=== PATIENT | female | born 1960 | race Caucasian/White ===

== ENCOUNTER → 2016-09-20 | Outpatient (CLI) | payer OTHER ==
[~2016-09-20] MED LIST: ASCO1CAP3 PO; ASPCH81X PO; ATOV250T PO; AZIT250T PO; B 12 INJECTION IM; BIOT1CAP8 PO; BIOTPOW17; CALC-51 PO; CATS CLAW PO; CEFU250T15 PO; CHLOROPHYLL PO; CHOL1CAP57 PO; CHRO200C PO; CITA-112 PO; CITA20TA4 PO; CITA40TA4 PO; CLON1TAB3 PO; CYAN1SUB13 SC; CYCL5TAB PO; CYTM5 PO; DOXY100C76 PO; FLUC100T4 PO; FLX/5 PO; GABA-113 PO; HYDR-4079 PO; HYDR-4332 PO; HYDR200T5 PO; LEVO88TA PO; LEVO88TA3 PO; LIOT5TAB9 PO; MELO7.5T5 PO; METH1CHW PO; MILK175C3 PO; MINO100C22 PO; MISCCAP80 PO; MULT-506 PO; NRN/300 PO; SILVER SHIELD PO; SULF800T23 PO; TOPI100T34 PO; TOPI50TA24 PO; TRAM-10 PO; TUMERIC PO; VIT D; VNTHFA/IN INH; [UNRECOGNIZED DRUG - OTHER] PO; [UNRECOGNIZED DRUG - OTHER] PO; [UNRECOGNIZED DRUG - OTHER] PO
[2016-09-20 16:44] LABS: THYROID STIMULATING HORMONE 0.019 uIu/ml (0.300-4.500)
== END | disposition home or self-care (01) ==
LOC: C.LAB1850 14:20
PROVIDERS: ATTEND Internal Medicine
DX: C73 Malignant neoplasm of thyroid gland (principal)

== ENCOUNTER → 2016-11-27 | Day surgery (SDC) | payer OTHER ==
[2016-11-13 11:25] VITALS: Ht 157.5 cm; Wt 45.5 kg
[~2016-11-27] VITALS: Ht 157.5 cm; Wt 45.5 kg
[~2016-11-27] MED LIST changes: -ASCO1CAP3 PO; -B 12 INJECTION IM; -BIOTPOW17; -CALC-51 PO; -CATS CLAW PO; -CHLOROPHYLL PO; -CHOL1CAP57 PO; -CHRO200C PO; -CITA-112 PO; -CYTM5 PO; +FENTANYL CITRATE INJ 50 MCG/1 ML 2 ML VIAL ONE; -FLUC100T4 PO; -FLX/5 PO; -HYDR-4332 PO; -LEVO88TA PO; +LIDOCAINE HCL 2% 2 ML VIAL (20MG/ML) ONE; -METH1CHW PO; -MILK175C3 PO; -MINO100C22 PO; -MULT-506 PO; -NRN/300 PO; +PROPOFOL IV EMULSION 10 MG/ML 20 ML VIAL IV ONE; -SILVER SHIELD PO; +SODIUM CHLORIDE 0.9% 500ML 500 ML IV ONE; -SULF800T23 PO; -TOPI50TA24 PO; -TUMERIC PO; -VIT D; -[UNRECOGNIZED DRUG - OTHER] PO; -[UNRECOGNIZED DRUG - OTHER] PO; -[UNRECOGNIZED DRUG - OTHER] PO
--- NOTE | 2016-11-27 11:02 | Endo History and Physical ---
History & Physical Date of Service: Nov 27, 2016. Chief Complaint: Screening Referring Physician: Dr. Looney History of Present Illness 56 yo CF who presents for screening colonoscopy. Past Medical History Anxiety, Reflux, Depression Past Surgical History Hx Cardiac Surgery: No Hx Internal Defibrillator: No Hx Pacemaker: No Hx Abdominal Surgery: Yes (CHEIKH BSO, LAPAROSCOPIES, D&C) Hx of Implantable Prosthesis: No Hx Post-Op Nausea and Vomiting: No Hx Cancer Surgery: Yes (THYROIDECTOMY, LYMPH NODE REMOVAL FROM NECK X3 (TOTAL 4 SX)) Hx Thoracic Surgery: No Hx Orthopedic: No Hx Urinary Tract Surgery: No Family History Polyp, IBD Social History Smoking Status: Never Smoker Hx Substance Use: No Hx Alcohol Use: Yes (rarely) Allergies Coded Allergies: Clavulanic Acid (Verified Allergy, Unknown, ITCHY, 11/13/16) Penicillins (Verified Allergy, Unknown, ITCHY; FROM AUGMENTIN, 11/13/16) Current Medications Reported Home Medications Medications Dose Route/Sig Max Daily Dose Days Date Category Dose Instructions Flexeril (Cyclobenzaprine Hcl) 5 Mg Tab 1 Tab PO TID PRN 11/17/16 Reported Ultram (Tramadol HCl) 50 Mg Tab 50 Mg PO BID PRN 11/13/16 Reported Biotin 1 Mg Cap 1 Cap PO 3XWK 11/13/16 Reported Ventolin Hfa (Albuterol) 200 Puffs/44685 Mcg Aers 2-4 Puffs INH Q6H PRN 11/13/16 Reported Probiotic (Probiotic Product) 1 Cap Cap 1 Cap PO QAM 11/13/16 Reported Topamax (Topiramate) 100 Mg Tab 100 Mg PO BID 11/13/16 Reported Mobic (Meloxicam) 7.5 Mg Tab 7.5 Mg PO QAM 11/13/16 Reported Levothyroxine Sodium 88 Mcg Tab 1 Tab PO QAM 90 11/13/16 Reported Liothyronine Sodium 5 Mcg Tab 1 Tab PO QAM 11/13/16 Reported Jackson 10MG/325MG (Acetaminophen/Hydrocodone Bitart) Tab 1 Tab PO BID PRN 11/13/16 Reported PRN PAIN Neurontin (Gabapentin) 300 Mg Cap 600 Mg PO TID 11/13/16 Reported B-12 (Cyanocobalamin) 1,000 Mcg Sub 1 Dose SC 3XWK 11/13/16 Reported Klonopin (Clonazepam) 1 Mg Tab 1 Mg PO HS 11/13/16 Reported Citalopram Hydrobromide 20 Mg Tab 1 Tab PO HS 90 11/13/16 Reported Citalopram Hydrobromide (Citalopram) 40 Mg Tab 1 Tab PO HS 90 11/13/16 Reported Aspirin Chewable (Aspirin) 81 Mg Chew 81 Mg PO QAM 11/13/16 Reported Monodox (Doxycycline Monohydrate) 100 Mg Cap 100 Mg PO BID 11/13/16 Reported Vital Signs Weight (Kilograms): 45.45 Height (Feet): 5 Height (Inches): 2 Date Time Temp Pulse Resp B/P Pulse Ox O2 Delivery O2 Flow Rate FiO2 11/27/16 10:51 36 80 20 101/81 100 Room Air Physical Exam General Appearance: WD/WN, no apparent distress Respiratory/Chest: Auscultation: breath sounds normal Cardiovascular: Heart Auscultation: RRR Abdomen: Bowel Sounds: normal Inspection & Palpation: soft, non-distended, no tenderness, guarding & rebound Assessment and Plan Assessment: 56 yo CF who presents for screening colonoscopy. Plan: Proceed with colonoscopy.
--- NOTE | 2016-11-27 11:53 | Discharge Instructions ---
Endoscopy Patient Instructions Date / Procedure(s) Performed Nov 27, 2016. Colonoscopy Allergy Information Coded Allergies: Clavulanic Acid (Verified Allergy, Unknown, ITCHY, 11/13/16) Penicillins (Verified Allergy, Unknown, ITCHY; FROM AUGMENTIN, 11/13/16) Discharge Date / Findings Nov 27, 2016. Internal and External hemorrhoids Medication Instructions 1) OK to resume all medications today as prescribed 2) Start Metamucil 1 teaspoonful in 8 oz glass of water daily. Reported Home Medications Medications Dose Route/Sig Max Daily Dose Days Date Category Dose Instructions Flexeril (Cyclobenzaprine Hcl) 5 Mg Tab 1 Tab PO TID PRN 11/17/16 Reported Ultram (Tramadol HCl) 50 Mg Tab 50 Mg PO BID PRN 11/13/16 Reported Biotin 1 Mg Cap 1 Cap PO 3XWK 11/13/16 Reported Ventolin Hfa (Albuterol) 200 Puffs/02621 Mcg Aers 2-4 Puffs INH Q6H PRN 11/13/16 Reported Probiotic (Probiotic Product) 1 Cap Cap 1 Cap PO QAM 11/13/16 Reported Topamax (Topiramate) 100 Mg Tab 100 Mg PO BID 11/13/16 Reported Mobic (Meloxicam) 7.5 Mg Tab 7.5 Mg PO QAM 11/13/16 Reported Levothyroxine Sodium 88 Mcg Tab 1 Tab PO QAM 90 11/13/16 Reported Liothyronine Sodium 5 Mcg Tab 1 Tab PO QAM 11/13/16 Reported Dougherty 10MG/325MG (Acetaminophen/Hydrocodone Bitart) Tab 1 Tab PO BID PRN 11/13/16 Reported PRN PAIN Neurontin (Gabapentin) 300 Mg Cap 600 Mg PO TID 11/13/16 Reported B-12 (Cyanocobalamin) 1,000 Mcg Sub 1 Dose SC 3XWK 11/13/16 Reported Klonopin (Clonazepam) 1 Mg Tab 1 Mg PO HS 11/13/16 Reported Citalopram Hydrobromide 20 Mg Tab 1 Tab PO HS 90 11/13/16 Reported Citalopram Hydrobromide (Citalopram) 40 Mg Tab 1 Tab PO HS 90 11/13/16 Reported Aspirin Chewable (Aspirin) 81 Mg Chew 81 Mg PO QAM 11/13/16 Reported Monodox (Doxycycline Monohydrate) 100 Mg Cap 100 Mg PO BID 11/13/16 Reported Provider Instructions Activity Restrictions - No exercising or heavy lifting for 24 hours. - Do not drink alcohol the day of the procedure. - Do not drive a car or operate machinery until the day after the procedure. - Do not make any important decisions or sign important papers in 24 hours after the procedure. Following Day: - Return to full activity which may include returning to work/school. Diet Start your diet with liquids and light foods (jello, soup, juice, toast). Then eat your usual diet if not nauseated. Treatment For Common After Affects For mild abdominal pain, bloating, or excessive gas: - Rest - Eat lightly - Lie on right side Follow-Up Information Follow-up with Dr Looney as scheduled Anesthesia Information What You Should Know You have had a procedure that required some medicine to reduce anxiety and discomfort. This treatment is called moderate sedation. After receiving the treatment, you may be sleepy, but you will be able to breathe on your own. The effects of the treatment may last for several hours. Follow these instructions along with Activity/Diet recommendations noted above: * Do NOT do anything where dizziness or clumsiness would be dangerous. * Rest quietly at home today, then you can be up and about tomorrow. * Have a responsible person stay with you the rest of today. * You may have had an I.V. today. If so, you may take the dressing off later today. Recommendations Call your doctor if: * Trouble breathing * Continuous vomiting for more than 24 hours * Temperature above 101 degrees * Severe abdominal pain or bloating * Pain not relieved by pain medicine ordered * There is increased drainage or redness from any incision * A large amount of rectal bleeding greater than 2-3 tablespoons. (If you had a polyp/s removed or have hemorrhoids, a small amount of blood - from the rectum is to be expected.) * You have any unanswered questions or concerns. IN THE EVENT OF A SERIOUS EMERGENCY, GO TO THE NEAREST EMERGENCY ROOM Your discharge instructions were prepared by provider Swapnil Anderson. Patient Instructions Signature Page Alexia Rm Patient (or Guardian) Signature/Date: I have read and understand the instructions given to me by my caregivers. Caregiver/RN/Doctor Signature/Date: The above-named patient and/or guardian has received patient instructions on this date. + Original Patient Signature Page (only) stays with chart. Please make copy for patient.
--- NOTE | 2016-11-27 11:53 | GI REPORT ---
Procedure Date: 11/27/2016 11:22 AM Procedure: Colonoscopy Indications: Screening for colorectal malignant neoplasm Medicines: Monitored Anesthesia Care Complications: No immediate complications. Estimated Blood Loss: Estimated blood loss: none. Procedure: Pre-Anesthesia Assessment: - Prior to the procedure, a History and Physical was performed, and patient medications and allergies were reviewed. The patient's tolerance of previous anesthesia was also reviewed. The risks and benefits of the procedure and the sedation options and risks were discussed with the patient. All questions were answered, and informed consent was obtained. Prior Anticoagulants: The patient has taken aspirin, last dose was 3 days prior to procedure. ASA Grade Assessment: III - A patient with severe systemic disease. After reviewing the risks and benefits, the patient was deemed in satisfactory condition to undergo the procedure. After I obtained informed consent, the scope was passed under direct vision. Throughout the procedure, the patient's blood pressure, pulse, and oxygen saturations were monitored continuously. The On-site loaner was introduced through the anus and advanced to the terminal ileum. The colonoscopy was performed without difficulty. The patient tolerated the procedure well. The quality of the bowel preparation was good. The terminal ileum, ileocecal valve, appendiceal orifice, and rectum were photographed. Findings: Non-bleeding external and internal hemorrhoids were found during retroflexion and during perianal exam. The hemorrhoids were small. The exam was otherwise without abnormality. Impression: - Non-bleeding external and internal hemorrhoids. - The examination was otherwise normal. - No specimens collected. Recommendation: - Resume previous diet. - Continue present medications. - Use original regular Metamucil one teaspoon PO daily. - Repeat colonoscopy in 10 years for surveillance. - Return to primary care physician as previously scheduled. Swapnil Anderson DO 11/27/2016 11:53:20 AM This report has been signed electronically. Note Initiated On: 11/27/2016 11:22 AM I attest to the content of the Intraoperative Record and orders documented therein, exceptions below
[2016-11-27 12:18] VITALS: BP 91/51; PULSE 72; O2SAT 99
--- NOTE | 2016-11-27 12:19 | Anesthesiology Progress Note ---
Anesthesia Post Op Note Date & Time Nov 27, 2016 at 12:19 Vital Signs Pain Intensity: 0 Vital Signs Past 12 Hours Date Time Temp Pulse Resp B/P Pulse Ox O2 Delivery O2 Flow Rate FiO2 11/27/16 12:03 74 16 93/58 100 Room Air 11/27/16 11:48 78 16 98/58 100 Room Air 11/27/16 10:51 36 80 20 101/81 100 Room Air Notes Mental Status: alert / awake / arousable, participated in evaluation Pt Amnestic to Procedure: Yes Nausea / Vomiting: adequately controlled Pain: adequately controlled Airway Patency, RR, SpO2: stable & adequate BP & HR: stable & adequate Hydration State: stable & adequate Anesthetic Complications: no major complications apparent
== END | disposition home or self-care (01) ==
LOC: C.GI 10:21
PROVIDERS: ATTEND Internal Medicine
DX: Z12.11 Encounter for screening for malignant neoplasm of colon (principal); K64.8 Other hemorrhoids; K64.4 Residual hemorrhoidal skin tags; Z83.79 Family history of other diseases of the digestive system; Z83.71 Family history of colonic polyps; Z85.850 Personal history of malignant neoplasm of thyroid

== ENCOUNTER → 2016-12-14 | Outpatient (CLI) | payer OTHER ==
[~2016-12-14] MED LIST changes: -FENTANYL CITRATE INJ 50 MCG/1 ML 2 ML VIAL ONE; -LIDOCAINE HCL 2% 2 ML VIAL (20MG/ML) ONE; -PROPOFOL IV EMULSION 10 MG/ML 20 ML VIAL IV ONE; -SODIUM CHLORIDE 0.9% 500ML 500 ML IV ONE
[2016-12-14 16:43] LABS: BLOOD UREA NITROGEN 19 mg/dl (7-18); BUN/CREATININE RATIO 25.8 (10-20); CALCIUM 8.3 mg/dl (8.5-10.1); CARBON DIOXIDE 27 mmol/L (21-32); CHLORIDE 108 mmol/L (98-107); CREATININE 0.73 mg/dl (0.60-1.20); GLUCOSE 86 mg/dl (70-99); POTASSIUM 3.6 mmol/L (3.5-5.1); SODIUM 141 mmol/L (136-145)
[2016-12-14 16:53] LABS: THYROID STIMULATING HORMONE 0.035 uIu/ml (0.300-4.500)
[2016-12-16 14:04] LABS: THYROGLOBULIN 0.2 NG/ML (2.8-40.9)
== END | disposition home or self-care (01) ==
LOC: C.LAB1850 15:11
PROVIDERS: ATTEND Internal Medicine
DX: C73 Malignant neoplasm of thyroid gland (principal); M25.50 Pain in unspecified joint

== ENCOUNTER → 2017-01-02 | Outpatient (CLI) | payer OTHER ==
--- NOTE | 2017-01-03 13:56 | MAMMOGRAPHY REPORT ---
BILATERAL DIGITAL SCREENING MAMMOGRAM TOMOSYNTHESIS WITH CAD: 01/02/2017 CLINICAL HISTORY: Routine screening. Patient has no complaints. TECHNIQUE: Breast tomosynthesis in addition to standard 2D mammography was performed. Current study was also evaluated with a Computer Aided Detection (CAD) system. COMPARISON: Comparison is made to exams dated: 12/31/2015 mammogram, 12/29/2014 mammogram, 11/06/2013 mammogram, 12/24/2012 mammogram, 10/13/2010 mammogram, and 10/12/2009 mammogram - [facility]. BREAST COMPOSITION: The tissue of both breasts is heterogeneously dense, which may obscure small ma sses. FINDINGS: The parenchymal pattern is similar to prior exams. No developing mass, architectural dis tortion or cluster of suspicious microcalcifications is seen in either breast. IMPRESSION: ACR BI-RADS CATEGORY 2: BENIGN There is no mammographic evidence of malignancy. A 1 year screening mammogram is recommended. The p atient will receive written notification of the results. Approximately 10% of breast cancers are not detected with mammography. A negative mammographic repor t should not delay biopsy if a clinically suggestive mass is present. Rhianna Zeng M.D. ay/:01/02/2017 17:41:38 Public Health Advisor: Nayely RICHARDSON(Brian)([place])([place]), [facility] letter sent: Normal 1/2 BI-RADS Code: ACR BI-RADS Category 2: Benign
== END | disposition home or self-care (01) ==
LOC: C.MAMM 11:11
PROVIDERS: ATTEND Obstetrics & Gynecology
DX: Z12.31 Encounter for screening mammogram for malignant neoplasm of breast (principal)

== ENCOUNTER → 2017-01-08 | Outpatient (CLI) | payer OTHER ==
--- NOTE | 2017-01-08 15:49 | DIAGNOSTIC IMAGING REPORT ---
MRI LUMBAR SPINE W/O CONTRAST CLINICAL HISTORY: Back pain with lumbar radiculopathy. TECHNIQUE: Sagittal and axial T1, T2 and STIR images were obtained. COMPARISON STUDY: April 2006 OBSERVATIONS: The vertebral bodies and posterior elements appear intact. There is no abnormal bony signal present to suggest a marrow replacement process. L1-2: No disc protrusions or extrusions. No evidence of spinal canal or neural foraminal compromise. L2-3: No disc protrusions or extrusions. No evidence of spinal canal or neural foraminal compromise. L3-4: No disc protrusions or extrusions. No evidence of spinal canal or neural foraminal compromise. L4-5: There is a mild circumferential disc bulge asymmetric lateral to the left. There is minor bilateral foraminal narrowing. There is slight flattening of the anterior thecal sac. L5-S1: There is a small left lateral disc bulge/protrusion. There is no significant spinal stenosis. There is minor left-sided foraminal narrowing. The conus medullaris and cauda equina appear normal. IMPRESSION: 1. Stable small left lateral disc bulge/protrusion at the L5-S1 level. No significant spinal stenosis. Minor left-sided foraminal narrowing 2. Mild circumferential disc bulge asymmetric to the left at the L4-5 level. Minor bilateral foraminal narrowing. Slight effacement of the anterior thecal sac. Electronically signed by: Cecilio Melgar M.D. 01/08/2017 3:47 PM Dictated Date/Time: 01/08/2017 3:42 PM
== END | disposition home or self-care (01) ==
LOC: C.MRIBC 14:47
PROVIDERS: ATTEND Physician Assistant Medical
DX: M54.16 Radiculopathy, lumbar region (principal); M51.27 Other intervertebral disc displacement, lumbosacral region

== ENCOUNTER → 2017-03-08 | Outpatient (CLI) | payer OTHER ==
[2017-03-08 16:03] LABS: BASO % 0.9 %; BASO ABS # 0.05 K/uL (0-0.2); COMPLETE YES; EOS % 1.1 %; HEMATOCRIT 38.4 % (37-47); IG% 1.4 %; LYMPH % 30.7 %; LYMPH ABS # 1.71 K/uL (1.2-3.4); MEAN CELL VOLUME 85.3 fL (80-100); MEAN CORPUSCULAR HEMOGLOBIN 29.1 pg (25-34); MEAN CORPUSCULAR HGB CONC 34.1 g/dl (32-36); MEAN PLATELET VOLUME 10.7 fL (7.4-10.4); MONO % 12.2 %; NEUT % 53.7 %; PLATELET COUNT 224 K/uL (130-400); WHITE BLOOD COUNT 5.57 K/uL (4.8-10.8)
[2017-03-08 16:14] LABS: ALT/SGPT 19 U/L (12-78); BLOOD UREA NITROGEN 12 mg/dl (7-18); BUN/CREATININE RATIO 12.4 (10-20); C-REACTIVE PROTEIN < 0.29 mg/dl (0-0.29); CALCIUM 8.6 mg/dl (8.5-10.1); CARBON DIOXIDE 24 mmol/L (21-32); CHLORIDE 111 mmol/L (98-107); CREATININE 0.95 mg/dl (0.60-1.20); GLUCOSE 75 mg/dl (70-99); POTASSIUM 4.1 mmol/L (3.5-5.1); SODIUM 143 mmol/L (136-145)
[2017-03-08 16:25] LABS: ALB/GLOB RATIO 1.3 (0.9-2); ALKALINE PHOSPHATASE 78 U/L (45-117); AST/SGOT 16 U/L (15-37); THYROID STIMULATING HORMONE 0.013 uIu/ml (0.300-4.500)
== END | disposition home or self-care (01) ==
LOC: C.LAB1850 14:40
PROVIDERS: ATTEND Internal Medicine
DX: R63.4 Abnormal weight loss (principal); R19.7 Diarrhea, unspecified; E53.8 Deficiency of other specified B group vitamins; C73 Malignant neoplasm of thyroid gland

== ENCOUNTER → 2017-03-19 | Outpatient (CLI) | payer OTHER ==
[~2017-03-19] MED LIST changes: +OPTIRAY 320 IV PRN
--- NOTE | 2017-03-19 14:16 | DIAGNOSTIC IMAGING REPORT ---
ABD/PELVIS IV AND ORAL CONT CLINICAL HISTORY: 56 year-old Female presenting with Weight loss Diarrhea. TECHNIQUE: Multidetector CT imaging of the abdomen and pelvis was performed after the administration of 91 mL of Optiray 320 intravenous contrast. Oral contrast was administered. COMPARISON: Noncontrast CT of the abdomen from 09/19/[address] chest from 10/26/2014. FINDINGS: Store Specialist topogram: Unremarkable. Lung bases: Nodular/bandlike opacity in the lingula, possibly scarring or atelectasis. Normal heart size. No pericardial or pleural effusion. Liver: Normal morphology. At least 4 lesions in the right hepatic lobe lesions noted, the 3 largest demonstrating peripheral discontinuous nodular enhancement at the right hepatic dome. These are enumerated below: -Segment 8 4.2 cm lesion (series 3 image 47) -Segment 7/8 2.4 cm lesion (series 3 image 33 -Adjacent segment 7 2.5 cm lesion (series 3 image 36) -Segment 6/7 subcentimeter lesion (series 3 image 70) A well-defined nonenhancing also noted in the lateral left hepatic lobe, hepatic cyst or hamartoma. Patent hepatic vasculature. No intrahepatic or extrahepatic biliary ductal dilatation. Gallbladder: Normal. Pancreas: Normal. Spleen: Normal. Adrenal glands: Normal. Kidneys: Normal. No hydronephrosis. Bowel: Oral contrast transits to the sigmoid colon. Prominence of jejunal folds, nonspecific. No bowel obstruction. Appendix not visualized. Peritoneum: No free fluid. Vasculature: Aorta and IVC patent. Lymph nodes: No enlarged lymph nodes in the abdomen or pelvis. Bladder: Normal. Pelvic organs: Patient is status post hysterectomy. No adnexal masses. Musculoskeletal: Bone island noted in the left ilium and right sacrum. IMPRESSION: 1. No convincing evidence of malignancy in the abdomen or pelvis. No lymphadenopathy. 2. Multiple hepatic lesions, incompletely characterized but likely representing benign hemangiomas. Electronically signed by: Tato Gannon 03/19/2017 2:15 PM Dictated Date/Time: 03/19/2017 1:56 PM
== END | disposition home or self-care (01) ==
LOC: C.CTS 11:12
PROVIDERS: ATTEND Internal Medicine
DX: R19.7 Diarrhea, unspecified (principal); R63.4 Abnormal weight loss

== ENCOUNTER → 2017-03-19 | Outpatient (CLI) | payer OTHER ==
[~2017-03-19] MED LIST changes: -OPTIRAY 320 IV PRN
== END | disposition home or self-care (01) ==
LOC: C.LAB1850 10:55
PROVIDERS: ATTEND Family Medicine
DX: R19.7 Diarrhea, unspecified (principal)

== ENCOUNTER → 2017-05-16 | Outpatient (CLI) | payer OTHER ==
[~2017-05-16] MED LIST changes: -DOXY100C76 PO; -MELO7.5T5 PO
[2017-05-16 13:14] LABS: HEMATOCRIT 39.1 % (37-47); MEAN CELL VOLUME 86.7 fL (80-100); MEAN CORPUSCULAR HGB CONC 33.5 g/dl (32-36); MEAN PLATELET VOLUME 10.9 fL (7.4-10.4); PLATELET COUNT 224 K/uL (130-400); RED BLOOD COUNT 4.51 M/uL (4.2-5.4); WHITE BLOOD COUNT 6.06 K/uL (4.8-10.8)
[2017-05-16 14:03] LABS: ALT/SGPT 28 U/L (12-78); AST/SGOT 18 U/L (15-37); BLOOD UREA NITROGEN 14 mg/dl (7-18); BUN/CREATININE RATIO 15.1 (10-20); CALCIUM 8.5 mg/dl (8.5-10.1); CARBON DIOXIDE 26 mmol/L (21-32); CHLORIDE 112 mmol/L (98-107); CREATININE 0.95 mg/dl (0.60-1.20); GLUCOSE 78 mg/dl (70-99); POTASSIUM 4.3 mmol/L (3.5-5.1); SODIUM 142 mmol/L (136-145)
[2017-05-16 14:16] LABS: ALB/GLOB RATIO 1.2 (0.9-2); ALKALINE PHOSPHATASE 76 U/L (45-117); THYROID STIMULATING HORMONE 0.028 uIu/ml (0.300-4.500)
[2017-05-19 05:10] LABS: THYROGLOBULIN 0.5 NG/ML (2.8-40.9)
== END | disposition home or self-care (01) ==
LOC: C.LAB1850 12:06
PROVIDERS: ATTEND Internal Medicine
DX: C73 Malignant neoplasm of thyroid gland (principal)

== ENCOUNTER → 2017-05-18 | Outpatient (CLI) | payer OTHER ==
--- NOTE | 2017-05-18 10:55 | DIAGNOSTIC IMAGING REPORT ---
SOFT TISS HEAD/NECK-THYROID CLINICAL HISTORY: 56 years-old Female presenting with THYROID CA. TECHNIQUE: Real-time grayscale and color and spectral Doppler ultrasound imaging of the thyroid and base of the neck was performed. COMPARISON: 07/04/2016. FINDINGS: Right lobe: Status post thyroidectomy. No recurrent soft tissue in the right thyroidectomy bed. Left lobe: Status post thyroidectomy. No recurrent soft tissue in the left thyroidectomy bed. Within limitations of ultrasound, no evidence of suspicious lymphadenopathy in the neck. IMPRESSION: Status post thyroidectomy without convincing evidence of suspicious soft tissue in the thyroidectomy bed. No lymphadenopathy. Electronically signed by: Tato Gannon M.D. 05/18/2017 10:53 AM Dictated Date/Time: 05/18/2017 10:52 AM
== END | disposition home or self-care (01) ==
LOC: C.ULTRBC 09:48
PROVIDERS: ATTEND Internal Medicine
DX: C73 Malignant neoplasm of thyroid gland (principal); Z98.890 Other specified postprocedural states

== ENCOUNTER → 2017-06-29 | Outpatient (CLI) | payer OTHER ==
--- NOTE | 2017-06-29 14:13 | MAMMOGRAPHY REPORT ---
UNILATERAL RIGHT DIGITAL DIAGNOSTIC MAMMOGRAM TOMOSYNTHESIS WITH CAD AND TARGETED RIGHT ULTRASOUND: 1 CLINICAL HISTORY: The patient reports a palpable lump in the right breast for approximately one month , which has not noticeably changed per the patient. She denies any other complaints. TECHNIQUE: Breast tomosynthesis in addition to standard 2D mammography was performed. Current study was also evaluated with a Computer Aided Detection (CAD) system. Right CC and MLO 2-D and tomosynthe sis images were obtained. COMPARISON: Comparison is made to exams dated: 01/02/2017 mammogram, 12/31/2015 mammogram, 12/29/2014 m ammogram, 11/06/2013 ultrasound, 11/06/2013 mammogram, and 12/24/2012 mammogram - [facility]. BREAST COMPOSITION: The tissue of the right breast is heterogeneously dense, which may obscure small masses. FINDINGS: A triangle marker garay the site of the palpable lump/thickening in the right 12:00 breast. No suspicious masses or other suspicious mammographic abnormalities are seen in this region. The r emainder of the right breast is stable compared to prior exams, without suspicious masses, calcificat ions, or areas of architectural distortion noted. Targeted ultrasound was performed of the area of the palpable lump/thickening pointed out by the christopher ent, in the right breast at approximately 12 to 12:30, 6 cm from the nipple. Sonographically normal tissue is seen in this region, without evidence of a mass or other suspicious sonographic abnormality . IMPRESSION: ACR BI-RADS CATEGORY 2: BENIGN, TARGETED ULTRASOUND ACR BI-RADS CATEGORY 2: BENIGN No suspicious mammographic or sonographic abnormality at the site of the palpable lump/thickening in the right breast pointed out by the patient. There is no mammographic or targeted sonographic eviden ce of malignancy. Recommend clinical follow-up for the right breast palpable lump/thickening; any de cision to biopsy should be based on clinical grounds. Also recommend routine bilateral screening amisha mograms which are due December 2017. The patient has been verbally notified of the results. Approximately 10% of breast cancers are not detected with mammography. A negative mammographic report should not delay biopsy if a clinically suggestive mass is present. Tali Kline M.D. ah/:06/29/2017 10:18:59 Vehicle Refinisher: Jyoti Grider, [facility] letter sent: Normal 09/18 BI-RADS Code: ACR BI-RADS Category 2: Benign Ultrasound BI-RADS: ACR BI-RADS Category 2: Benign
== END | disposition home or self-care (01) ==
LOC: C.MAMM 09:49
PROVIDERS: ATTEND Obstetrics & Gynecology
DX: N63.10 Unspecified lump in the right breast, unspecified quadrant (principal)

== ENCOUNTER → 2017-07-10 | Outpatient (CLI) | payer OTHER ==
[2017-07-10 18:16] LABS: BASO % 0.9 %; BASO ABS # 0.05 K/uL (0-0.2); COMPLETE YES; EOS % 1.5 %; HEMATOCRIT 41.6 % (37-47); IG% 1.7 %; LYMPH ABS # 1.58 K/uL (1.2-3.4); MEAN CELL VOLUME 87.6 fL (80-100); MEAN CORPUSCULAR HEMOGLOBIN 28.2 pg (25-34); MEAN CORPUSCULAR HGB CONC 32.2 g/dl (32-36); MEAN PLATELET VOLUME 11.4 fL (7.4-10.4); MONO % 11.1 %; NEUT % 57.8 %; PLATELET COUNT 220 K/uL (130-400); RED BLOOD COUNT 4.75 M/uL (4.2-5.4); WHITE BLOOD COUNT 5.86 K/uL (4.8-10.8)
[2017-07-10 18:42] LABS: ALT/SGPT 25 U/L (12-78); AST/SGOT 22 U/L (15-37); BLOOD UREA NITROGEN 17 mg/dl (7-18); BUN/CREATININE RATIO 21.6 (10-20); CALCIUM 8.3 mg/dl (8.5-10.1); CARBON DIOXIDE 24 mmol/L (21-32); CHLORIDE 113 mmol/L (98-107); GLUCOSE 77 mg/dl (70-99); POTASSIUM 4.2 mmol/L (3.5-5.1); SODIUM 144 mmol/L (136-145)
[2017-07-10 18:45] LABS: ALB/GLOB RATIO 1.1 (0.9-2); ALKALINE PHOSPHATASE 85 U/L (45-117)
== END | disposition home or self-care (01) ==
LOC: C.LABMFLN 11:31
PROVIDERS: ATTEND Physician Assistant
DX: R25.2 Cramp and spasm (principal)

== ENCOUNTER → 2017-11-05 | Outpatient (CLI) | payer OTHER | LOC: C.LABMFLN 11:36 | PROVIDERS: ATTEND Internal Medicine | DX: C73 Malignant neoplasm of thyroid gland (principal) ==

== ENCOUNTER 2017-12-17 15:00 | Inpatient (IN) | payer OTHER ==
[~2017-12-17] VITALS: Ht 157.5 cm; Wt 44.9 kg
[2017-12-17] MEDS ORDERED: ONDANSETRON INJ 2 MG/ML 2 ML VIAL IV STA (15:35)
[2017-12-17] MEDS ORDERED: SODIUM CHLORIDE 0.9% 1000ML 2,000 ML IV STA (15:35)
--- NOTE | 2017-12-17 15:59 | EMERGENCY ROOM VISIT NOTE ---
History First contact with patient: 15:14 Chief Complaint: GI ASSESSMENT Stated Complaint: DIARRHEA SINCE SUNDAY, ABD PAIN, UNABLE TO EAT History of Present Illness The patient is a 57 year old female who presents to the Emergency Room with complaints of watery diarrhea x6 days, with loose stools and stomach cramping. Pt denies emesis. Pt denies sick contacts. Pt states a doctor told her she had IBS about 20 y ago but she is not on any treatment for this, and normally she is a bit constipated. Of note pt has been on antibiotics chronically for 4 years because of Lyme's disease and "co-infections". Abdominal pain is crampy and occurs after eating and with her stooling. A/w chills. Review of Systems ROS See HPI for pertinent positives and negatives. Past Medical/Surgical History Medical Problems: (1) Abdominal pain (2) Lyme disease Social History Smoking Status: Never Smoker Alcohol Use: none Marital Status: Occupation Status: unemployed Current/Historical Medications Scheduled Aspirin (Aspir-81), 1 TAB PO DAILY Biotin (Biotin), 1 CAP PO 3XWK Citalopram (Citalopram Hydrobromide), 1 TAB PO HS Citalopram Hydrobromide (Citalopram Hydrobromide), 1 TAB PO HS Clonazepam (Klonopin), 1 MG PO HS Cyanocobalamin (B-12), 1 DOSE SC Q3MO Gabapentin (Neurontin), 600 MG PO TID Levothyroxine Sodium (Levothyroxine Sodium), 1 TAB PO QAM Liothyronine Sodium (Liothyronine Sodium), 1 TAB PO QAM Probiotic Product (Probiotic), 1 CAP PO QAM Topiramate (Topamax), 100 MG PO BID Scheduled PRN Albuterol Hfa (Ventolin Hfa), 2-4 PUFFS INH Q6H PRN for Shortness of Breath Cyclobenzaprine Hcl (Flexeril), 1 TAB PO TID PRN for spsam Hydrocodone/Acetaminophen 10MG/325MG ([place] 10MG/325MG), 1 TAB PO BID PRN for Pain Physical Exam Vital Signs Date Time Temp Pulse Resp B/P (MAP) Pulse Ox O2 Delivery O2 Flow Rate FiO2 12/17/17 18:40 76 16 102/72 100 Room Air 12/17/17 17:03 82 16 96/59 100 Room Air 12/17/17 15:07 36.3 102 20 106/73 99 Room Air Physical Exam GENERAL: Awake, alert, appears older than stated age, in no distress. Thin. HENT: Normocephalic, atraumatic. EYES: Normal conjunctiva. Sclera non-icteric. NECK: Supple. FROM. No JVD. RESPIRATORY: Clear to auscultation. CARDIAC: Regular rate, normal rhythm. Extremities warm and well perfused. Pulses equal. ABDOMEN: Soft, non-distended. ++ tenderness to palpation in RUQ, RLQ, LLQ. No rebound or guarding. No masses. LOWER EXTREMITIES: Calves are equal size bilaterally and non-tender. No edema. No discoloration. NEURO: No motor deficits noted. SKIN: No rash or jaundice noted. Medical Decision & Procedures Laboratory Results 12/17/17 15:42 Red Blood Count 4.51, Mean Corpuscular Volume 82.9, Mean Corpuscular Hemoglobin 29.3, Mean Corpuscular Hemoglobin Concent 35.3, Mean Platelet Volume 10.3, Neutrophils (%) (Auto) 81.2, Lymphocytes (%) (Auto) 8.3, Monocytes (%) (Auto) 8.6, Eosinophils (%) (Auto) 0.6, Basophils (%) (Auto) 0.3, Neutrophils # (Auto) 11.37, Lymphocytes # (Auto) 1.16, Monocytes # (Auto) 1.21, Eosinophils # (Auto) 0.08, Basophils # (Auto) 0.04 12/17/17 15:42 Test 12/17/17 15:14 12/17/17 15:42 12/17/17 16:37 12/17/17 17:29 White Blood Count 14.00 K/uL (4.8-10.8) Red Blood Count 4.51 M/uL (4.2-5.4) Hemoglobin 13.2 g/dL (12.0-16.0) Hematocrit 37.4 % (37-47) Mean Corpuscular Volume 82.9 fL (80-100) Mean Corpuscular Hemoglobin 29.3 pg (25-34) Mean Corpuscular Hemoglobin Concent 35.3 g/dl (32-36) Platelet Count 206 K/uL (130-400) Mean Platelet Volume 10.3 fL (7.4-10.4) Neutrophils (%) (Auto) 81.2 % Lymphocytes (%) (Auto) 8.3 % Monocytes (%) (Auto) 8.6 % Eosinophils (%) (Auto) 0.6 % Basophils (%) (Auto) 0.3 % Neutrophils # (Auto) 11.37 K/uL (1.4-6.5) Lymphocytes # (Auto) 1.16 K/uL (1.2-3.4) Monocytes # (Auto) 1.21 K/uL (0.11-0.59) Eosinophils # (Auto) 0.08 K/uL (0-0.5) Basophils # (Auto) 0.04 K/uL (0-0.2) RDW Standard Deviation 40.0 fL (36.4-46.3) RDW Coefficient of Variation 13.1 % (11.5-14.5) Immature Granulocyte % (Auto) 1.0 % Immature Granulocyte # (Auto) 0.14 K/uL (0.00-0.02) Anion Gap 11.0 mmol/L (3-11) Est Creatinine Clear Calc Drug Dose 52.4 ml/min Estimated GFR () 90.8 Estimated GFR (Non- 78.3 BUN/Creatinine Ratio 14.6 (10-20) Calcium Level 8.6 mg/dl (8.5-10.1) Total Bilirubin 0.4 mg/dl (0.2-1) Direct Bilirubin < 0.1 mg/dl (0-0.2) Aspartate Amino Transf (AST/SGOT) 17 U/L (15-37) Alanine Aminotransferase (ALT/SGPT) 35 U/L (12-78) Alkaline Phosphatase 72 U/L (45-117) Total Protein 6.6 gm/dl (6.4-8.2) Albumin 3.4 gm/dl (3.4-5.0) Lipase 623 U/L (73-393) Urine Color YELLOW Urine Appearance CLEAR (CLEAR) Urine pH 6.0 (4.5-7.5) Urine Specific [place] 1.018 (1.000-1.030) Urine Protein NEG (NEG) Urine Glucose (UA) NEG (NEG) Urine Ketones 2+ (NEG) Urine Occult Blood 2+ (NEG) Urine Nitrite NEG (NEG) Urine Bilirubin NEG (NEG) Urine Urobilinogen NEG (NEG) Urine Leukocyte Esterase NEG (NEG) Urine WBC (Auto) 1-5 /hpf (0-5) Urine RBC (Auto) 10-30 /hpf (0-4) Urine Hyaline Casts (Auto) 1-5 /lpf (0-5) Urine Epithelial Cells (Auto) 5-10 /lpf (0-5) Urine Bacteria (Auto) NEG (NEG) Urine Test NEG (NEG) Bedside Lactic Acid Venous 0.69 mmol/L (0.90-1.70) Date/Time Source Procedure Growth Status 12/17/17 16:37 Stool C.difficile Toxin B Gene (PCR) - Final Positive for C. difficile toxin B gene Complete Medications Administered Medications (Trade) Dose Ordered Sig/Karolina Route Start Time Stop Time Status Last Admin Dose Admin Sodium Chloride 2,000 ml @ 999 mls/hr Q2H1M STAT IV 12/17/17 15:35 12/17/17 17:35 DC 12/17/17 15:52 999 MLS/HR Ondansetron HCl (Zofran Inj) 4 mg NOW STAT IV 12/17/17 15:35 12/17/17 15:36 DC 12/17/17 15:52 4 MG Morphine Sulfate (MoRPHine SULFATE INJ) 4 mg NOW STAT IV 12/17/17 17:41 12/17/17 17:43 DC 12/17/17 17:41 4 MG ED Course 1514 Reviewed records, saw and assessed pt 1530 Ordered labs, stool culture. CT abd. 1637 C. diff positive. Consulted gen surg, see attending's note. Decision made to admit for further management of c. diff colitis. Medical Decision The patient is a 57 year old female who presents to the Emergency Room with complaints of watery diarrhea x6 days, with loose stools and stomach cramping. Pt denies emesis. Pt denies sick contacts. Pt states a doctor told her she had IBS about 20 y ago but she is not on any treatment for this, and normally she is a bit constipated. Of note pt has been on antibiotics chronically for 4 years because of Lyme's disease and "co-infections". Abdominal pain is crampy and occurs after eating and with her stooling. A/w chills. Diff dx: c. diff colitis, gastroenteritis, cholecystitis, appendicitis Given h/o chronic antibiotic use, and stool + for c. diff and CT evidence of pancolitis, decision made to admit patient to hospitalist service for further management and treatment. For further details of discussion with gen surg, please see attending's note. Impression Primary Impression: Colitis, Clostridium difficile Departure Information Dispostion Admitted as an inpatient Condition GOOD Patient Instructions [facility] Resident Tracking Resident Involvement: Resident Care Provided Care Provided: Adult ED
[2017-12-17 16:12] LABS: ALBUMIN 3.4 gm/dl (3.4-5.0); ALT/SGPT 35 U/L (12-78); AST/SGOT 17 U/L (15-37); BLOOD UREA NITROGEN 12 mg/dl (7-18); CALCIUM 8.6 mg/dl (8.5-10.1); CARBON DIOXIDE 23 mmol/L (21-32); CREATININE 0.82 mg/dl (0.60-1.20); GLUCOSE 74 mg/dl (70-99); LIPASE 623 U/L (73-393); POTASSIUM 3.3 mmol/L (3.5-5.1); SODIUM 136 mmol/L (136-145)
[2017-12-17 16:13] LABS: BASO % 0.3 %; BASO ABS # 0.04 K/uL (0-0.2); EOS % 0.6 %; EOS ABS # 0.08 K/uL (0-0.5); HEMATOCRIT 37.4 % (37-47); HEMOGLOBIN 13.2 g/dL (12.0-16.0); IG# 0.14 K/uL (0.00-0.02); LYMPH % 8.3 %; LYMPH ABS # 1.16 K/uL (1.2-3.4); MEAN CELL VOLUME 82.9 fL (80-100); MEAN CORPUSCULAR HEMOGLOBIN 29.3 pg (25-34); MEAN CORPUSCULAR HGB CONC 35.3 g/dl (32-36); MEAN PLATELET VOLUME 10.3 fL (7.4-10.4); MONO % 8.6 %; MONO ABS # 1.21 K/uL (0.11-0.59); NEUT % 81.2 %; NEUT ABS # 11.37 K/uL (1.4-6.5); PLATELET COUNT 206 K/uL (130-400); RED CELL DISTRIBUTION WIDTH CV 13.1 % (11.5-14.5)
[2017-12-17 16:14] LABS: ALKALINE PHOSPHATASE 72 U/L (45-117); TOTAL PROTEIN 6.6 gm/dl (6.4-8.2)
[2017-12-17] MEDS ORDERED: OPTIRAY 320 IV PRN (16:30)
--- NOTE | 2017-12-17 17:13 | DIAGNOSTIC IMAGING REPORT ---
CT SCAN OF THE ABDOMEN AND PELVIS WITH IV CONTRAST CLINICAL HISTORY: Generalized abdominal pain. COMPARISON STUDY: Abdominal CT dated 03/19/2017. TECHNIQUE: Following the IV administration of 93 cc of Optiray 320, CT scan of the abdomen and pelvis is performed from the lung bases to the proximal femora. Images are reviewed in the axial, sagittal, and coronal planes. IV contrast was administered without complication. A dose lowering technique was utilized adhering to the principles of ALARA. CT DOSE: 251.96 mGy.cm FINDINGS: Lung bases: The heart is normal in size and without pericardial effusion. Scarring is noted in the right middle lobe and lingula. Scattered tiny calcified granulomas are observed. No airspace consolidation is seen typical for pneumonia and no pleural effusion is identified. Liver: The contrast-enhanced liver is normal in size, contour, and attenuation. There is no intrahepatic biliary ductal dilatation. The hepatic veins and portal veins are patent. There is a 5.4 x 3.8 cm lesion with peripheral discontinuous nodular enhancement identified in the right hepatic lobe on image #68. Additional smaller similar-appearing lesions are identified more superiorly in the right lobe on images #53 measuring up to 3.6 cm and image #49 measuring up to 2.2 cm. These are consistent with hemangiomas and unchanged from previous. A 1.1 cm low-attenuation lesion is seen in the left lobe on image #59. This may represent a tiny hemangioma or cyst end is also unchanged. Gallbladder: The gallbladder is distended. There is no significant gallbladder wall thickening or pericholecystic inflammation. Spleen: Normal in size and attenuation. Pancreas: Unremarkable. Adrenal glands: Unremarkable. Kidneys: The contrast enhanced kidneys are normal in size and without hydronephrosis. The kidneys enhance symmetrically. There is a 3 mm nonobstructing calculus in the right lower pole. A subcentimeter cortical hypodensity in the interpolar left kidney likely represents a cyst but is too small for definitive characterization. Abdominal vasculature: The abdominal aorta is normal in course and caliber. Bowel: No bowel obstruction is identified. There is diffuse colonic wall thickening and edema with mild pericolonic infiltration. The appearance is consistent with a nonspecific pancolitis. The appendix is mildly dilated and the appendiceal wall is thickened and hyperemic. The appendix measures 10 mm in diameter as seen on image #328. Peritoneum: There is no intraperitoneal free air or abdominal ascites. There is a small fat-containing umbilical hernia. Lymphadenopathy: None. Pelvic viscera: The bladder is normal as visualized. The uterus is surgically absent. No adnexal lesion is seen. Skeletal structures: The skeletal structures are osteopenic. Mild spondylotic change is noted in the lumbar spine. No lytic or blastic lesions are seen. IMPRESSION: 1. Findings are consistent with a nonspecific pancolitis, likely on an infectious or inflammatory basis. 2. The appendix is mildly dilated, and there is appendiceal wall thickening and hyperemia. This is likely related to the associated colitis. Acute surgical appendicitis is considered much less likely. Clinical correlation will be required. Follow-up as needed. 3. No intraperitoneal free air or abdominal ascites is seen. 4. Nonobstructing right renal calculus. 5. The gallbladder is distended but otherwise normal as visualized. This may be related to fasting state. Clinical and laboratory correlation will be required. 6. Hepatic masses are unchanged and consistent with benign hemangiomas. Electronically signed by: Guerrero Carpenter M.D. 12/17/2017 5:12 PM Dictated Date/Time: 12/17/2017 5:04 PM
[2017-12-17] MEDS ORDERED: MoRPHine SULFATE 4 MG/ML 1 ML CARP\\VIAL IV STA (17:41)
[2017-12-17] MEDS ORDERED: SODIUM CHLORIDE 0.9% 1000ML 1,000 ML IV SCH (17:45)
[2017-12-17] MEDS ORDERED: VANCOMYCIN HCL 125 MG/2.5ML SOLN PO SCH (18:00)
--- NOTE | 2017-12-17 18:08 | EMERGENCY ROOM VISIT NOTE ---
History Report prepared by Marilia: Elise Salomon Under the Supervision of: Jin SalomonO. First contact with patient: 15:13 Chief Complaint: GI ASSESSMENT Stated Complaint: DIARRHEA SINCE SUNDAY, ABD PAIN, UNABLE TO EAT History of Present Illness The patient is a 57 year old female who presents to the Emergency Room with complaints of intermittent diarrhea beginning on Sunday, five days ago. The patient reports she has had about 6-10 episodes a day. She reports trying Imodium with no relief. She reports severe abdominal pain after eating beginning three days ago. The patient rates her abdominal pain as a 10/10. Pain is sharp stabbing/crampy in nature and does come and go. The patient has been on antibiotics intermittently for 4 years for lyme's disease. She has not been on antibiotics since September. The patient has a history of a complete hysterectomy. Pt denies headache, change in vision, fevers, chest pain, shortness of breath, nausea, vomiting, pain with urination, and melena. Source of History: patient Onset: five days ago Position: other (generalized) Symptom Intensity: 10/10 Quality: other (diarrhea) Timing: intermittent Associated Symptoms: + abdominal pain, + diarrhea, No fevers, No headache, No chest pain, No SOB, No nausea, No vomiting, No urinary symptoms Review of Systems See HPI for pertinent positives & negatives. A total of 10 systems reviewed and were otherwise negative. Past Medical & Surgical Medical Problems: (1) Lyme disease Family History Patient reports no known family medical history. Social History Smoking Status: Never Smoker Marital Status: Housing Status: lives with significant other Occupation Status: unemployed Current/Historical Medications Scheduled Aspirin (Aspirin Chewable), 81 MG PO QAM Atovaquone-Proguanil Hcl (Malarone), 1 TAB PO DAILY Azithromycin (Zithromax), 250 MG PO DAILY Biotin (Biotin), 1 CAP PO 3XWK Cefuroxime Axetil (Ceftin), 250 MG PO DAILY Citalopram (Citalopram Hydrobromide), 1 TAB PO HS Citalopram Hydrobromide (Citalopram Hydrobromide), 1 TAB PO HS Clonazepam (Klonopin), 1 MG PO HS Cyanocobalamin (B-12), 1 DOSE SC 3XWK Gabapentin (Neurontin), 600 MG PO TID Hydroxychloroquine Sulfate (Plaquenil), 1 TAB PO BID Levothyroxine Sodium (Levothyroxine Sodium), 1 TAB PO QAM Liothyronine Sodium (Liothyronine Sodium), 1 TAB PO QAM Probiotic Product (Probiotic), 1 CAP PO QAM Topiramate (Topamax), 100 MG PO BID Scheduled PRN Albuterol Hfa (Ventolin Hfa), 2-4 PUFFS INH Q6H PRN for Shortness of Breath Cyclobenzaprine Hcl (Flexeril), 1 TAB PO TID PRN for spsam Hydrocodone/Acetaminophen 10MG/325MG ([place] 10MG/325MG), 1 TAB PO BID PRN for Pain Tramadol (Ultram), 50 MG PO BID PRN for Pain Allergies Coded Allergies: Clavulanic Acid (Verified Allergy, Unknown, ITCHY, 12/17/17) Penicillins (Verified Allergy, Unknown, ITCHY; FROM AUGMENTIN, 12/17/17) Physical Exam Vital Signs Date Time Temp Pulse Resp B/P (MAP) Pulse Ox O2 Delivery O2 Flow Rate FiO2 12/17/17 17:03 82 16 96/59 100 Room Air 12/17/17 15:07 36.3 102 20 106/73 99 Room Air Physical Exam GENERAL: Sitting up in bed, alert, well appearing, well nourished, no distress, non-toxic EYE EXAM: normal conjunctiva. PERRL and EOM's grossly intact. OROPHARYNX: no exudate, no erythema, lips, buccal mucosa, and tongue normal and mucous membranes are moist NECK: supple, no nuchal rigidity, no adenopathy, non-tender LUNGS: Clear to auscultation. Normal chest wall mechanics HEART: no murmurs, S1 normal and S2 normal ABDOMEN: Mild diffuse tenderness. abdomen soft, normo-active bowel sounds, no masses, no rebound or guarding. BACK: Back is symmetrical on inspection and there is no deformity, no midline tenderness, no CVA tenderness. SKIN: no rashes and no bruising UPPER EXTREMITIES: upper extremities are grossly normal. LOWER EXTREMITIES: No pitting edema. NEURO EXAM: Normal sensorium, cranial nerves II-XII grossly intact, normal speech, no gross weakness of arms, no gross weakness of legs. Medical Decision & Procedures ER Provider Diagnostic Interpretation: Radiology results as stated below per my review and the radiologist's interpretation: CT SCAN OF THE ABDOMEN AND PELVIS WITH IV CONTRAST FINDINGS: Lung bases: The heart is normal in size and without pericardial effusion. Scarring is noted in the right middle lobe and lingula. Scattered tiny calcified granulomas are observed. No airspace consolidation is seen typical for pneumonia and no pleural effusion is identified. Liver: The contrast-enhanced liver is normal in size, contour, and attenuation. There is no intrahepatic biliary ductal dilatation. The hepatic veins and portal veins are patent. There is a 5.4 x 3.8 cm lesion with peripheral discontinuous nodular enhancement identified in the right hepatic lobe on image #68. Additional smaller similar-appearing lesions are identified more superiorly in the right lobe on images #53 measuring up to 3.6 cm and image #49 measuring up to 2.2 cm. These are consistent with hemangiomas and unchanged from previous. A 1.1 cm low-attenuation lesion is seen in the left lobe on image #59. This may represent a tiny hemangioma or cyst end is also unchanged. Gallbladder: The gallbladder is distended. There is no significant gallbladder wall thickening or pericholecystic inflammation. Spleen: Normal in size and attenuation. Pancreas: Unremarkable. Adrenal glands: Unremarkable. Kidneys: The contrast enhanced kidneys are normal in size and without hydronephrosis. The kidneys enhance symmetrically. There is a 3 mm nonobstructing calculus in the right lower pole. A subcentimeter cortical hypodensity in the interpolar left kidney likely represents a cyst but is too small for definitive characterization. Abdominal vasculature: The abdominal aorta is normal in course and caliber. Bowel: No bowel obstruction is identified. There is diffuse colonic wall thickening and edema with mild pericolonic infiltration. The appearance is consistent with a nonspecific pancolitis. The appendix is mildly dilated and the appendiceal wall is thickened and hyperemic. The appendix measures 10 mm in diameter as seen on image #328. Peritoneum: There is no intraperitoneal free air or abdominal ascites. There is a small fat-containing umbilical hernia. Lymphadenopathy: None. Pelvic viscera: The bladder is normal as visualized. The uterus is surgically absent. No adnexal lesion is seen. Skeletal structures: The skeletal structures are osteopenic. Mild spondylotic change is noted in the lumbar spine. No lytic or blastic lesions are seen. IMPRESSION: 1. Findings are consistent with a nonspecific pancolitis, likely on an infectious or inflammatory basis. 2. The appendix is mildly dilated, and there is appendiceal wall thickening and hyperemia. This is likely related to the associated colitis. Acute surgical appendicitis is considered much less likely. Clinical correlation will be required. Follow-up as needed. 3. No intraperitoneal free air or abdominal ascites is seen. 4. Nonobstructing right renal calculus. 5. The gallbladder is distended but otherwise normal as visualized. This may be related to fasting state. Clinical and laboratory correlation will be required. 6. Hepatic masses are unchanged and consistent with benign hemangiomas. Electronically signed by: Guerrero Carpenter M.D. Laboratory Results 12/17/17 15:42 Red Blood Count 4.51, Mean Corpuscular Volume 82.9, Mean Corpuscular Hemoglobin 29.3, Mean Corpuscular Hemoglobin Concent 35.3, Mean Platelet Volume 10.3, Neutrophils (%) (Auto) 81.2, Lymphocytes (%) (Auto) 8.3, Monocytes (%) (Auto) 8.6, Eosinophils (%) (Auto) 0.6, Basophils (%) (Auto) 0.3, Neutrophils # (Auto) 11.37, Lymphocytes # (Auto) 1.16, Monocytes # (Auto) 1.21, Eosinophils # (Auto) 0.08, Basophils # (Auto) 0.04 12/17/17 15:42 Test 12/17/17 15:14 12/17/17 15:42 12/17/17 16:37 12/17/17 17:29 White Blood Count 14.00 K/uL (4.8-10.8) Red Blood Count 4.51 M/uL (4.2-5.4) Hemoglobin 13.2 g/dL (12.0-16.0) Hematocrit 37.4 % (37-47) Mean Corpuscular Volume 82.9 fL (80-100) Mean Corpuscular Hemoglobin 29.3 pg (25-34) Mean Corpuscular Hemoglobin Concent 35.3 g/dl (32-36) Platelet Count 206 K/uL (130-400) Mean Platelet Volume 10.3 fL (7.4-10.4) Neutrophils (%) (Auto) 81.2 % Lymphocytes (%) (Auto) 8.3 % Monocytes (%) (Auto) 8.6 % Eosinophils (%) (Auto) 0.6 % Basophils (%) (Auto) 0.3 % Neutrophils # (Auto) 11.37 K/uL (1.4-6.5) Lymphocytes # (Auto) 1.16 K/uL (1.2-3.4) Monocytes # (Auto) 1.21 K/uL (0.11-0.59) Eosinophils # (Auto) 0.08 K/uL (0-0.5) Basophils # (Auto) 0.04 K/uL (0-0.2) RDW Standard Deviation 40.0 fL (36.4-46.3) RDW Coefficient of Variation 13.1 % (11.5-14.5) Immature Granulocyte % (Auto) 1.0 % Immature Granulocyte # (Auto) 0.14 K/uL (0.00-0.02) Anion Gap 11.0 mmol/L (3-11) Est Creatinine Clear Calc Drug Dose 52.4 ml/min Estimated GFR () 90.8 Estimated GFR (Non- 78.3 BUN/Creatinine Ratio 14.6 (10-20) Calcium Level 8.6 mg/dl (8.5-10.1) Total Bilirubin 0.4 mg/dl (0.2-1) Direct Bilirubin < 0.1 mg/dl (0-0.2) Aspartate Amino Transf (AST/SGOT) 17 U/L (15-37) Alanine Aminotransferase (ALT/SGPT) 35 U/L (12-78) Alkaline Phosphatase 72 U/L (45-117) Total Protein 6.6 gm/dl (6.4-8.2) Albumin 3.4 gm/dl (3.4-5.0) Lipase 623 U/L (73-393) Urine Color YELLOW Urine Appearance CLEAR (CLEAR) Urine pH 6.0 (4.5-7.5) Urine Specific [place] 1.018 (1.000-1.030) Urine Protein NEG (NEG) Urine Glucose (UA) NEG (NEG) Urine Ketones 2+ (NEG) Urine Occult Blood 2+ (NEG) Urine Nitrite NEG (NEG) Urine Bilirubin NEG (NEG) Urine Urobilinogen NEG (NEG) Urine Leukocyte Esterase NEG (NEG) Urine WBC (Auto) 1-5 /hpf (0-5) Urine RBC (Auto) 10-30 /hpf (0-4) Urine Hyaline Casts (Auto) 1-5 /lpf (0-5) Urine Epithelial Cells (Auto) 5-10 /lpf (0-5) Urine Bacteria (Auto) NEG (NEG) Urine Test NEG (NEG) Bedside Lactic Acid Venous 0.69 mmol/L (0.90-1.70) Date/Time Source Procedure Growth Status 12/17/17 16:37 Stool C.difficile Toxin B Gene (PCR) - Final Positive for C. difficile toxin B gene Complete Laboratory results per my review. Medications Administered Medications (Trade) Dose Ordered Sig/Karolina Route Start Time Stop Time Status Last Admin Dose Admin Sodium Chloride 2,000 ml @ 999 mls/hr Q2H1M STAT IV 12/17/17 15:35 12/17/17 17:35 DC 12/17/17 15:52 999 MLS/HR Ondansetron HCl (Zofran Inj) 4 mg NOW STAT IV 12/17/17 15:35 12/17/17 15:36 DC 12/17/17 15:52 4 MG Morphine Sulfate (MoRPHine SULFATE INJ) 4 mg NOW STAT IV 12/17/17 17:41 12/17/17 17:43 DC 12/17/17 17:41 4 MG ED Course ED COURSE: Vital signs were reviewed and showed tachycardic The patients medical record was reviewed The above diagnostic studies were performed and reviewed. ED treatments and interventions as stated above. 1535: Ordered Zofran Inj 4 mg IV, Sodium Chloride 2000 ml @ 999 mls/hr IV. 1537: The patient was evaluated in room B8. A complete history and physical examination was performed. 1738: I reviewed the patient's case with Dr. Rivas-General Surgery. He recommends bringing the patient in for further evaluation. 1740: I updated the patient on her test results. She is agreeable to the treatment plan. 1741: Ordered Morphine Sulfate 4 mg IV. 1745: Ordered Sodium Chloride 1000 ml @ 999 mls/hr IV. 1746: I reviewed the patient's case with Herbie CHU. He will evaluate the patient for further management. 1751: Upon reevaluation, the patient is resting comfortably.I discussed my findings with the patient and she understands and agrees with the treatment plan. Based on the patients age, coexisting illnesses, exam and lab findings the decision to treat as an inpatient was made. The patient remained stable while under my care. The patient will be evaluated for further management. Medical Decision Differential diagnoses includes but is not limited to gastritis, peptic ulcer disease, GERD, gallbladder disease, pancreatitis, small bowel obstruction, acute coronary syndrome, pericarditis, ischemic bowel, irritable bowel disease, irritable bowel syndrome, appendicitis, diverticulitis, malignancy, hernia, urinary tract infection, torsion, /ectopic (if female), perforation, trauma, infectious. Patient is a 57-year-old female who presents the ER for diffuse abdominal pain associated with diarrhea. Labs show a leukocytosis of 14,000. Potassium slightly low. Lipase is elevated although I favor this secondary to the diffuse pancolitis seen on CT which eventually resulted with a positive stool culture for C. difficile. Lactate was negative. CT did show swelling of the appendix with mild dilation. Discussed with general surgery. I did consult them who recommended discussed with internal medicine for admission. Patient was given fluids and oral vancomycin. Patient will be admitted for further workup of the pancolitis likely secondary to C. difficile. Medication Reconcilliation Current Medication List: was personally reviewed by me Blood Pressure Screening Patient's blood pressure: Low blood pressure Consults Time Called: 1735 Consulting Physician: Dr. Rivas-General Surgery Returned Call: 1738 I reviewed the patient's case with Dr. Rivas-General Surgery. He recommends bringing the patient in for further evaluation. Additional Consults: Time Called: 1741 Consulted Physician: Herbie CHU Returned Call: 1742 Additional Comments: I reviewed the patient's case with Herbie CHU. He will evaluate the patient for further management. Impression Primary Impression: Colitis, Clostridium difficile Additional Impressions: Hypokalemia Hypotension Scribe Attestation The scribe's documentation has been prepared under my direction and personally reviewed by me in its entirety. I confirm that the note above accurately reflects all work, treatment, procedures, and medical decision making performed by me. Departure Information Dispostion Being Evaluated By Hospitalist Referrals Surjit Looney M.D. (PCP) Patient Instructions My [facility] Problem Qualifiers Additional Impressions: Hypotension Hypotension type: unspecified hypotension type Qualified Codes: I95.9 - Hypotension, unspecified
[2017-12-17] MEDS ORDERED: ASPI-232 PO (18:10)
[2017-12-17] MEDS ORDERED: MoRPHine SULFATE 2 MG/ML CARP IV PRN (18:15)
[2017-12-17] MEDS ORDERED: KETOROLAC TROMETHAMINE 15 MG/ML VIAL IM PRN (18:15)
[2017-12-17] MEDS ORDERED: ACETAMINOPHEN 325 MG TAB PO PRN (18:15)
[2017-12-17] MEDS ORDERED: ALUMINUM/MAGNESIUM/SIMETH (MAALOX MAX) 30 ML UDC PO PRN (18:15)
[2017-12-17] MEDS ORDERED: CYCLOBENZAPRINE HCL 10 MG TAB PO PRN (18:15)
[2017-12-17] MEDS ORDERED: ONDANSETRON INJ 2 MG/ML 2 ML VIAL IV PRN (18:15)
--- NOTE | 2017-12-17 18:45 | History and Physical ---
History & Physical Date & Time of Service: Dec 17, 2017 at 18:12 Chief Complaint: Diarrhea Since Sunday, Abd Pain, Unable To Eat Primary Care Physician: Surjit Looney M.D. History of Present Illness Source: patient, family 57 year old chronic pain patient. Lyme disease. Has been on antibiotics for over four years, although stopped two months ago. Presents to ED today with three days of abdominal pain and diarrhea. Positive chills, uncertain if fever. Poor appetite. denied blood in stools. CT scan showed a navarrete colitis and mildly enlarged appendix. WBC up at 14k. Afebrile. Stool study for c.diff was positive. At that point, hospitalists were asked to see patient and she will be placed under hospitalists service. Vanco PO was started. Lipase was up as well. Past Medical/Surgical History Medical Problems: (1) Lyme disease 2. chronic pain 3. history of thyroid CA past surgical history Thyroid surgery x 2 for hx of CA\ exploratory lap Family History Patient reports no known family medical history. denies any Cancers or CAD Social History non smoker/drinker Smoking Status: Never Smoker Smokeless Tobacco Use: No Alcohol Use: none Drug Use: none Marital Status: Housing status: lives with family Occupational Status: unemployed Immunizations History of Influenza Vaccine: Yes Influenza Vaccine Date: Jul 18, 2006 History of Tetanus Vaccine?: Yes Tetanus Immunization Date: Jul 23, 2001 History of Pneumococcal: Yes Pneumococcal Date: Jul 23, 2004 History of Hepatitis B Vaccine: Yes Allergies Coded Allergies: Clavulanic Acid (Verified Allergy, Unknown, ITCHY, 12/17/17) Penicillins (Verified Allergy, Unknown, ITCHY; FROM AUGMENTIN, 12/17/17) Home Medications Scheduled Aspirin (Aspir-81), 1 TAB PO DAILY Biotin (Biotin), 1 CAP PO 3XWK Citalopram (Citalopram Hydrobromide), 1 TAB PO HS Citalopram Hydrobromide (Citalopram Hydrobromide), 1 TAB PO HS Clonazepam (Klonopin), 1 MG PO HS Cyanocobalamin (B-12), 1 DOSE SC Q3MO Gabapentin (Neurontin), 600 MG PO TID Levothyroxine Sodium (Levothyroxine Sodium), 1 TAB PO QAM Liothyronine Sodium (Liothyronine Sodium), 1 TAB PO QAM Probiotic Product (Probiotic), 1 CAP PO QAM Topiramate (Topamax), 100 MG PO BID Scheduled PRN Albuterol Hfa (Ventolin Hfa), 2-4 PUFFS INH Q6H PRN for Shortness of Breath Cyclobenzaprine Hcl (Flexeril), 1 TAB PO TID PRN for spsam Hydrocodone/Acetaminophen 10MG/325MG ([place] 10MG/325MG), 1 TAB PO BID PRN for Pain Review of Systems Constitutional: + chills, + fatigue, No fever, No sweats, No weight loss, No weakness, No problem reported Eyes: No worsening of vision, No eye pain, No redness, No discharge, No diplopia, No problem reported ENT: No hearing loss, No unusual epistaxis, No nasal symptoms, No sore throat, No tinnitus, No dental problems, No trouble swallowing, No problem reported Respiratory: No cough, No sputum, No wheezing, No shortness of breath, No dyspnea on exertion, No dyspnea at rest, No hemoptysis, No problem reported Cardiovascular: No chest pain, No orthopnea, No PND, No edema, No claudication , No palpitations, No problem reported Abdomen: + pain, + nausea, + diarrhea Musculoskeletal: + joint pain Genitourinary - Female: No dysuria, No urinary frequency, No urinary urgency, No urinary incontinence, No urinary retention, No hematuria, No dysmenorrhea, No menorrhagia, No metrorrhagia, No rash, No vaginal bleeding, No vaginal discharge, No vaginal itching, No vulvodynia, No , No problem reported Neurologic: No memory loss, No paralysis, No weakness, No numbness/tingling, No vertigo, No balance problems, No problem reported Psychiatric: + anxiety Endocrine: No fatigue, No excessive thirst, No excessive urination, No problem reported Hematologic / Lymphatic: No abnormal bleeding/bruising, No clotting problems, No swollen lymph nodes, No night sweats, No problem reported Integumentary: No rash, No itch, No new/changing skin lesions, No color change , No bleeding, No problem reported Allergic / Immunologic: No environmental allergies, No seasonal allergies, No pet sensitivities, No food allergies, No hives, No frequent infections, No poor healing, No prolonged convalescence, No problem reported Physical Exam Vital Signs Date Time Temp Pulse Resp B/P (MAP) Pulse Ox O2 Delivery O2 Flow Rate FiO2 12/17/17 17:03 82 16 96/59 100 Room Air 12/17/17 15:07 36.3 102 20 106/73 99 Room Air General Appearance: WD/WN, no apparent distress, + thin Head: normocephalic, atraumatic Eyes: normal inspection ENT: pharynx normal Neck: supple Respiratory/Chest: chest non-tender, lungs clear, normal breath sounds, no respiratory distress Cardiovascular: regular rate, rhythm, no edema, no JVD, no murmur Abdomen/GI: normal bowel sounds, soft, + tenderness Back: normal inspection, no CVA tenderness Extremities/Musculoskelatal: normal inspection, no calf tenderness, no pedal edema Neurologic/Psych: no motor/sensory deficits Skin: normal color, warm/dry Lymphatic: no adenopathy Diagnostics Laboratory Results Results Past 24 Hours Test 12/17/17 15:14 12/17/17 15:42 12/17/17 16:37 12/17/17 17:29 Range/Units White Blood Count 14.00 4.8-10.8 K/uL Red Blood Count 4.51 4.2-5.4 M/uL Hemoglobin 13.2 12.0-16.0 g/dL Hematocrit 37.4 37-47 % Mean Corpuscular Volume 82.9 80-100 fL Mean Corpuscular Hemoglobin 29.3 25-34 pg Mean Corpuscular Hemoglobin Concent 35.3 32-36 g/dl Platelet Count 206 130-400 K/uL Mean Platelet Volume 10.3 7.4-10.4 fL Neutrophils (%) (Auto) 81.2 % Lymphocytes (%) (Auto) 8.3 % Monocytes (%) (Auto) 8.6 % Eosinophils (%) (Auto) 0.6 % Basophils (%) (Auto) 0.3 % Neutrophils # (Auto) 11.37 1.4-6.5 K/uL Lymphocytes # (Auto) 1.16 1.2-3.4 K/uL Monocytes # (Auto) 1.21 0.11-0.59 K/uL Eosinophils # (Auto) 0.08 0-0.5 K/uL Basophils # (Auto) 0.04 0-0.2 K/uL RDW Standard Deviation 40.0 36.4-46.3 fL RDW Coefficient of Variation 13.1 11.5-14.5 % Immature Granulocyte % (Auto) 1.0 % Immature Granulocyte # (Auto) 0.14 0.00-0.02 K/uL Sodium Level 136 136-145 mmol/L Potassium Level 3.3 3.5-5.1 mmol/L Chloride Level 102 98-107 mmol/L Carbon Dioxide Level 23 21-32 mmol/L Anion Gap 11.0 3-11 mmol/L Blood Urea Nitrogen 12 7-18 mg/dl Creatinine 0.82 0.60-1.20 mg/dl Est Creatinine Clear Calc Drug Dose 52.4 ml/min Estimated GFR () 90.8 Estimated GFR (Non- 78.3 BUN/Creatinine Ratio 14.6 10-20 Random Glucose 74 70-99 mg/dl Calcium Level 8.6 8.5-10.1 mg/dl Total Bilirubin 0.4 0.2-1 mg/dl Direct Bilirubin < 0.1 0-0.2 mg/dl Aspartate Amino Transf (AST/SGOT) 17 15-37 U/L Alanine Aminotransferase (ALT/SGPT) 35 12-78 U/L Alkaline Phosphatase 72 45-117 U/L Total Protein 6.6 6.4-8.2 gm/dl Albumin 3.4 3.4-5.0 gm/dl Lipase 623 73-393 U/L Urine Color YELLOW Urine Appearance CLEAR CLEAR Urine pH 6.0 4.5-7.5 Urine Specific [place] 1.018 1.000-1.030 Urine Protein NEG NEG Urine Glucose (UA) NEG NEG Urine Ketones 2+ NEG Urine Occult Blood 2+ NEG Urine Nitrite NEG NEG Urine Bilirubin NEG NEG Urine Urobilinogen NEG NEG Urine Leukocyte Esterase NEG NEG Urine WBC (Auto) 1-5 0-5 /hpf Urine RBC (Auto) 10-30 0-4 /hpf Urine Hyaline Casts (Auto) 1-5 0-5 /lpf Urine Epithelial Cells (Auto) 5-10 0-5 /lpf Urine Bacteria (Auto) NEG NEG Urine Test NEG NEG Bedside Lactic Acid Venous 0.69 0.90-1.70 mmol/L Microbiology Results 12/17/17 C.difficile Toxin B Gene (PCR) - Final, Complete Positive for C. difficile toxin B gene 12/17/17 Shiga Toxin Test, Received Pending 12/17/17 Stool Culture, Received Pending Diagnostic Radiology CT SCAN OF THE ABDOMEN AND PELVIS WITH IV CONTRAST CLINICAL HISTORY: Generalized abdominal pain. COMPARISON STUDY: Abdominal CT dated 03/19/2017. TECHNIQUE: Following the IV administration of 93 cc of Optiray 320, CT scan of the abdomen and pelvis is performed from the lung bases to the proximal femora. Images are reviewed in the axial, sagittal, and coronal planes. IV contrast was administered without complication. A dose lowering technique was utilized adhering to the principles of ALARA. CT DOSE: 251.96 mGy.cm FINDINGS: Lung bases: The heart is normal in size and without pericardial effusion. Scarring is noted in the right middle lobe and lingula. Scattered tiny calcified granulomas are observed. No airspace consolidation is seen typical for pneumonia and no pleural effusion is identified. Liver: The contrast-enhanced liver is normal in size, contour, and attenuation. There is no intrahepatic biliary ductal dilatation. The hepatic veins and portal veins are patent. There is a 5.4 x 3.8 cm lesion with peripheral discontinuous nodular enhancement identified in the right hepatic lobe on image #68. Additional smaller similar-appearing lesions are identified more superiorly in the right lobe on images #53 measuring up to 3.6 cm and image #49 measuring up to 2.2 cm. These are consistent with hemangiomas and unchanged from previous. A 1.1 cm low-attenuation lesion is seen in the left lobe on image #59. This may represent a tiny hemangioma or cyst end is also unchanged. Gallbladder: The gallbladder is distended. There is no significant gallbladder wall thickening or pericholecystic inflammation. Spleen: Normal in size and attenuation. Pancreas: Unremarkable. Adrenal glands: Unremarkable. Kidneys: The contrast enhanced kidneys are normal in size and without hydronephrosis. The kidneys enhance symmetrically. There is a 3 mm nonobstructing calculus in the right lower pole. A subcentimeter cortical hypodensity in the interpolar left kidney likely represents a cyst but is too small for definitive characterization. Abdominal vasculature: The abdominal aorta is normal in course and caliber. Bowel: No bowel obstruction is identified. There is diffuse colonic wall thickening and edema with mild pericolonic infiltration. The appearance is consistent with a nonspecific pancolitis. The appendix is mildly dilated and the appendiceal wall is thickened and hyperemic. The appendix measures 10 mm in diameter as seen on image #328. Peritoneum: There is no intraperitoneal free air or abdominal ascites. There is a small fat-containing umbilical hernia. Lymphadenopathy: None. Pelvic viscera: The bladder is normal as visualized. The uterus is surgically absent. No adnexal lesion is seen. Skeletal structures: The skeletal structures are osteopenic. Mild spondylotic change is noted in the lumbar spine. No lytic or blastic lesions are seen. IMPRESSION: 1. Findings are consistent with a nonspecific pancolitis, likely on an infectious or inflammatory basis. 2. The appendix is mildly dilated, and there is appendiceal wall thickening and hyperemia. This is likely related to the associated colitis. Acute surgical appendicitis is considered much less likely. Clinical correlation will be required. Follow-up as needed. 3. No intraperitoneal free air or abdominal ascites is seen. 4. Nonobstructing right renal calculus. 5. The gallbladder is distended but otherwise normal as visualized. This may be related to fasting state. Clinical and laboratory correlation will be required. 6. Hepatic masses are unchanged and consistent with benign hemangiomas. Impression Assessment and Plan 1. c diff colitis - moderate to severe - vanco oral - contact isolation 2. abdominal pain secondary to #1 - morphine and toradol. IVF 3. chronic pain and EDWARD - continue home meds 4. full code 5 dvt prophylaxis with TEDS and heparin - monitor for bleeding with the colitis 6. ELS 2 nights Resuscitation Status VTE Prophylaxis Will order VTE Prophylaxis: Yes Social Service Consult None Apply
[2017-12-17] MEDS ORDERED: RASPBERRY SYRUP 5 ML UDP PO ONE (19:00)
[2017-12-17] MEDS ORDERED: IV FLUIDS COMPLETED PRN ×2 (20:15→23:00)
[2017-12-17] MEDS: HEPARIN SOD 5000 UNIT/0.5 ML CARP SQ SCH (21:00)
[2017-12-17] MEDS: NSS + 20MEQ KCL 1000ML 1,000 ML IV SCH (21:10)
[2017-12-17] MEDS: CLONAZEPAM 1 MG TAB PO SCH (21:12)
[2017-12-17] MEDS: TOPIRAMATE 100 MG TAB PO SCH (21:12)
[2017-12-17] MEDS: CITALOPRAM 40 MG TAB PO SCH (21:13)
[2017-12-17] MEDS: HYDROXYCHLOROQUINE SULFATE 200 MG TAB PO SCH (21:13)
[2017-12-17] MEDS: GABAPENTIN 600 MG TAB PO SCH (21:14)
[2017-12-17 22:01] VITALS: BP 99/64; PULSE 80; TEMP 36.8; O2SAT 99; BMI 18.1
[2017-12-18 00:15] VITALS: BP 82/54; PULSE 76; TEMP 37; O2SAT 94
[2017-12-18] MEDS: LEVOTHYROXINE 88 MCG TAB PO SCH (06:25)
[2017-12-18] MEDS: NSS + 20MEQ KCL 1000ML 1,000 ML IV SCH ×2 (06:27→19:36)
[2017-12-18 07:47] LABS: BASO % 0.5 %; BASO ABS # 0.05 K/uL (0-0.2); EOS ABS # 0.19 K/uL (0-0.5); HEMATOCRIT 28.7 % (37-47); HEMOGLOBIN 10.1 g/dL (12.0-16.0); IG# 0.16 K/uL (0.00-0.02); LYMPH % 15.9 %; LYMPH ABS # 1.53 K/uL (1.2-3.4); MEAN CELL VOLUME 83.7 fL (80-100); MEAN CORPUSCULAR HEMOGLOBIN 29.4 pg (25-34); MEAN CORPUSCULAR HGB CONC 35.2 g/dl (32-36); MEAN PLATELET VOLUME 9.8 fL (7.4-10.4); MONO % 11.2 %; MONO ABS # 1.08 K/uL (0.11-0.59); NEUT % 68.7 %; NEUT ABS # 6.61 K/uL (1.4-6.5); PLATELET COUNT 156 K/uL (130-400); RED CELL DISTRIBUTION WIDTH CV 13.4 % (11.5-14.5); RED CELL DISTRIBUTION WIDTH SD 40.9 fL (36.4-46.3); WHITE BLOOD COUNT 9.62 K/uL (4.8-10.8)
[2017-12-18 07:50] VITALS: BP 89/56; PULSE 71; TEMP 36.5; O2SAT 98
[2017-12-18] MEDS: LACTOBACILLUS ACIDOPHILUS (FLORANEX) TAB PO SCH (08:10)
[2017-12-18] MEDS: HYDROXYCHLOROQUINE SULFATE 200 MG TAB PO SCH ×2 (08:10→20:37)
[2017-12-18] MEDS: GABAPENTIN 600 MG TAB PO SCH ×3 (08:10→20:38)
[2017-12-18] MEDS: RASPBERRY SYRUP 5 ML UDP PO SCH ×4 (08:10→20:34)
[2017-12-18] MEDS: LIOTHYRONINE SODIUM 5 MCG TAB PO SCH (08:10)
[2017-12-18] MEDS: ASPIRIN 81 MG ECTAB PO SCH (08:10)
[2017-12-18] MEDS: VANCOMYCIN HCL 125 MG/2.5ML SOLN PO SCH ×4 (08:10→20:34)
[2017-12-18] MEDS: TOPIRAMATE 100 MG TAB PO SCH ×2 (08:11→20:37)
[2017-12-18] MEDS: HEPARIN SOD 5000 UNIT/0.5 ML CARP SQ SCH ×2 (08:14→21:00)
[2017-12-18 08:16] LABS: CREATININE 0.61 mg/dl (0.60-1.20)
[2017-12-18 08:17] LABS: CALCIUM 7.6 mg/dl (8.5-10.1); POTASSIUM 3.6 mmol/L (3.5-5.1)
[2017-12-18] MEDS ORDERED: SODIUM CHLORIDE 0.9% 1000ML 1,000 ML IV ONE (08:45)
[2017-12-18] MEDS: KETOROLAC TROMETHAMINE 15 MG/ML VIAL IV PRN ×3 (09:16→23:30)
[2017-12-18] MEDS ORDERED: IV FLUIDS COMPLETED PRN (10:15)
[2017-12-18 10:50] VITALS: BP 96/62
--- NOTE | 2017-12-18 13:04 | Hospitalist Progress Note ---
Hospitalist Progress Note Date of Service Dec 18, 2017. (Whit Crenshaw, PA-C) Subjective Pt evaluation today including: conversation w/ patient, physical exam, chart review, lab review, review of studies, review of inpatient medication list Patient seen and evaluated. No acute events overnight. Admitted for pancolitis 2 /2 C. diff So far reporting about 3-4 BMs this morning alone. Having cramping abdominal pain diffusely but reports the most tender area is at Mcburney's point which coincides with CT findings of a mildly enlarged appendix. Non-acute abdomen Reporting tolerance of clear liquid diet but does report feeling hungry and would like to try a full liquid diet. Had low normal BPs this AM but does report that she normally runs low but did give fluid bolus this AM Constitutional: No fever, No chills Respiratory: No shortness of breath Cardiovascular: No chest pain Abdomen: + pain (cramping and t), + diarrhea, No nausea, No vomiting, No GI bleeding Musculoskeletal: No swelling, No calf pain Female : No dysuria Heme: No abnormal bleeding/bruising (Whit Crenshaw, PA-C) Medications Current Inpatient Medications Medications (Trade) Dose Ordered Sig/Karolina Route Start Time Stop Time Status Last Admin Dose Admin Ioversol (Optiray 320) 111 ml UD PRN IV 12/17/17 16:30 12/21/17 16:29 Vancomycin HCl (Vancomycin Oral Soln) 125 mg QID PO 12/18/17 09:00 01/01/18 08:59 12/18/17 08:10 125 MG Acetaminophen (Tylenol Tab) 650 mg Q4H PRN PO 12/17/17 18:15 01/16/18 18:14 Al Hydrox/Mg Hydrox/Simethicone (Maalox Max Susp) 15 ml Q4H PRN PO 12/17/17 18:15 01/16/18 18:14 Ondansetron HCl (Zofran Inj) 4 mg Q6H PRN IV 12/17/17 18:15 01/16/18 18:14 Heparin Sodium (Porcine) (Heparin Sq 5000 Unit/0.5ml) 5,000 unit Q12H SQ 12/17/17 21:00 01/16/18 20:59 Aspirin (Ecotrin Tab) 81 mg QAM PO 12/18/17 09:00 01/17/18 08:59 12/18/17 08:10 81 MG Citalopram Hydrobromide (celeXA TAB) 40 mg HS PO 12/17/17 21:00 01/16/18 20:59 12/17/17 21:13 40 MG Clonazepam (Klonopin Tab) 1 mg HS PO 12/17/17 21:00 01/16/18 20:59 12/17/17 21:12 1 MG Cyclobenzaprine HCl (Flexeril Tab) 5 mg TID PRN PO 12/17/17 18:15 01/16/18 18:14 Gabapentin (Neurontin Tab) 600 mg TID PO 12/17/17 21:00 01/16/18 20:59 12/18/17 08:10 600 MG Hydroxychloroquine Sulfate (Plaquenil Tab) 200 mg BID PO 12/17/17 21:00 01/16/18 20:59 12/18/17 08:10 200 MG Levothyroxine Sodium (Synthroid Tab) 88 mcg DAILYBB PO 12/18/17 06:30 01/17/18 06:59 12/18/17 06:25 88 MCG Liothyronine Sodium (Cytomel Tab) 5 mcg QAM PO 12/18/17 09:00 01/17/18 08:59 12/18/17 08:10 5 MCG Topiramate (Topamax Tab) 100 mg BID PO 12/17/17 21:00 01/16/18 20:59 12/18/17 08:11 100 MG Lactobacillus Acidophilus (Floranex Tab) 1 tab QAM PO 12/18/17 09:00 01/17/18 08:59 12/18/17 08:10 1 TAB Morphine Sulfate (MoRPHine SULFATE INJ) 2 mg Q4H PRN IV 12/17/17 18:15 12/31/17 18:14 Potassium Chloride/Sodium Chloride 1,000 ml @ 100 mls/hr Q10H IV 12/17/17 21:00 01/16/18 20:59 12/18/17 06:27 100 MLS/HR Miscellaneous (Iv Fluids Completed) 1 ea PRN PRN N/A 12/17/17 20:15 12/17/18 20:14 Raspberry (Raspberry Syrup 5ml Cup) 5 ml QID PO 12/18/17 09:00 01/01/18 08:59 12/18/17 08:10 5 ML Miscellaneous (Iv Fluids Completed) 1 ea PRN PRN N/A 12/17/17 23:00 12/17/18 22:59 Ketorolac Tromethamine (Toradol Inj) 15 mg Q6H PRN IV 12/18/17 08:45 12/23/17 08:44 12/18/17 09:16 15 MG Miscellaneous (Iv Fluids Completed) 1 ea PRN PRN N/A 12/18/17 10:15 12/18/18 10:14 (Whit Crenshaw PA-C) Objective Vital Signs Date Time Temp Pulse Resp B/P (MAP) Pulse Ox O2 Delivery O2 Flow Rate FiO2 12/18/17 10:50 96/62 (73) 12/18/17 08:00 Room Air 12/18/17 07:50 36.5 71 18 89/56 (67) 98 Room Air 12/18/17 00:15 37.0 76 16 82/54 (63) 94 Room Air 12/18/17 00:00 Room Air 12/17/17 22:01 36.8 80 18 99/64 99 Room Air 12/17/17 20:04 84 16 92/57 100 12/17/17 19:35 84 16 92/57 100 Room Air 12/17/17 18:40 76 16 102/72 100 Room Air 12/17/17 17:03 82 16 96/59 100 Room Air 12/17/17 15:07 36.3 102 20 106/73 99 Room Air (Whit Crenshaw PA-C) Physical Exam General Appearance: WD/WN, no apparent distress, + thin Eyes: sclerae normal ENT: hearing grossly normal Neck: supple, no JVD, trachea midline Respiratory/Chest: lungs clear, normal breath sounds, no respiratory distress, no accessory muscle use Cardiovascular: regular rate, rhythm, no gallop, no murmur Abdomen: normal bowel sounds, + tenderness (more tenderness at McBurneys point ; no guarding or rigidity/no acute abdomen) Extremities: no calf tenderness, + swelling (trace pitting edema b/l lower extremities) Neurologic/Psychiatric: alert Skin: normal color (Whit Crenshaw PA-C) Laboratory Results Last 24 Hours Test 12/17/17 15:42 12/17/17 16:37 12/17/17 17:29 12/17/17 19:34 White Blood Count 14.00 K/uL Red Blood Count 4.51 M/uL Hemoglobin 13.2 g/dL Hematocrit 37.4 % Mean Corpuscular Volume 82.9 fL Mean Corpuscular Hemoglobin 29.3 pg Mean Corpuscular Hemoglobin Concent 35.3 g/dl Platelet Count 206 K/uL Mean Platelet Volume 10.3 fL Neutrophils (%) (Auto) 81.2 % Lymphocytes (%) (Auto) 8.3 % Monocytes (%) (Auto) 8.6 % Eosinophils (%) (Auto) 0.6 % Basophils (%) (Auto) 0.3 % Neutrophils # (Auto) 11.37 K/uL Lymphocytes # (Auto) 1.16 K/uL Monocytes # (Auto) 1.21 K/uL Eosinophils # (Auto) 0.08 K/uL Basophils # (Auto) 0.04 K/uL RDW Standard Deviation 40.0 fL RDW Coefficient of Variation 13.1 % Immature Granulocyte % (Auto) 1.0 % Immature Granulocyte # (Auto) 0.14 K/uL Sodium Level 136 mmol/L Potassium Level 3.3 mmol/L Chloride Level 102 mmol/L Carbon Dioxide Level 23 mmol/L Anion Gap 11.0 mmol/L Blood Urea Nitrogen 12 mg/dl Creatinine 0.82 mg/dl Est Creatinine Clear Calc Drug Dose 52.4 ml/min Estimated GFR () 90.8 Estimated GFR (Non- 78.3 BUN/Creatinine Ratio 14.6 Random Glucose 74 mg/dl Calcium Level 8.6 mg/dl Total Bilirubin 0.4 mg/dl Direct Bilirubin < 0.1 mg/dl Aspartate Amino Transf (AST/SGOT) 17 U/L Alanine Aminotransferase (ALT/SGPT) 35 U/L Alkaline Phosphatase 72 U/L Total Protein 6.6 gm/dl Albumin 3.4 gm/dl Lipase 623 U/L Hepatitis C Antibody Screen NEG Urine Color YELLOW Urine Appearance CLEAR Urine pH 6.0 Urine Specific [place] 1.018 Urine Protein NEG Urine Glucose (UA) NEG Urine Ketones 2+ Urine Occult Blood 2+ Urine Nitrite NEG Urine Bilirubin NEG Urine Urobilinogen NEG Urine Leukocyte Esterase NEG Urine WBC (Auto) 1-5 /hpf Urine RBC (Auto) 10-30 /hpf Urine Hyaline Casts (Auto) 1-5 /lpf Urine Epithelial Cells (Auto) 5-10 /lpf Urine Bacteria (Auto) NEG Urine Test NEG Bedside Lactic Acid Venous 0.69 mmol/L Prothrombin Time 10.4 SECONDS Prothromb Time International Ratio 1.0 Test 12/18/17 05:00 12/18/17 07:29 White Blood Count 9.62 K/uL Red Blood Count 3.43 M/uL Hemoglobin 10.1 g/dL Hematocrit 28.7 % Mean Corpuscular Volume 83.7 fL Mean Corpuscular Hemoglobin 29.4 pg Mean Corpuscular Hemoglobin Concent 35.2 g/dl Platelet Count 156 K/uL Mean Platelet Volume 9.8 fL Neutrophils (%) (Auto) 68.7 % Lymphocytes (%) (Auto) 15.9 % Monocytes (%) (Auto) 11.2 % Eosinophils (%) (Auto) 2.0 % Basophils (%) (Auto) 0.5 % Neutrophils # (Auto) 6.61 K/uL Lymphocytes # (Auto) 1.53 K/uL Monocytes # (Auto) 1.08 K/uL Eosinophils # (Auto) 0.19 K/uL Basophils # (Auto) 0.05 K/uL RDW Standard Deviation 40.9 fL RDW Coefficient of Variation 13.4 % Immature Granulocyte % (Auto) 1.7 % Immature Granulocyte # (Auto) 0.16 K/uL Sodium Level 142 mmol/L Potassium Level 3.6 mmol/L Chloride Level 112 mmol/L Carbon Dioxide Level 20 mmol/L Anion Gap 10.0 mmol/L Blood Urea Nitrogen 8 mg/dl Creatinine 0.61 mg/dl Est Creatinine Clear Calc Drug Dose 70.4 ml/min Estimated GFR () 115.0 Estimated GFR (Non- 99.2 BUN/Creatinine Ratio 12.7 Random Glucose 64 mg/dl Calcium Level 7.6 mg/dl Magnesium Level 1.8 mg/dl Lipase 421 U/L (Whit Crenshaw, PA-C) Assessment and Plan Sepsis 2/2 Pancolitis from C. Diff - Moderate/Severe: - Continues to have frequent BMs and abdominal pain/cramping - Vancomycine 125 mg QID - treatment started on 12/17 - Add Questran BID - Advance diet to full liquid and monitor tolerance and likely keep advancing Enlarged Appendix: - This is likely in the setting of colitis but will monitor Low Normal BPs: - Patient normally runs low but will continue fluids given significant losses with frequent BMs - NSS + KCl at 100 mL/hr and possible D/C tomorrow pending reduced BMs and diet tolerance Chronic Pain 2/2 Chronic Lyme: - Was on Abx x 4 years and stopped approx. 2 months ago - Gabapentin 600 mg TID; Flexeril PRN - Toradol and Morphine PRN DVT Prophylaxis: Heparin Disposition: - Continue monitor fluid/electrolytes and slowly advance diet - possible D/C next 1-2 days Continued [facility] stay due to: multiple IV medications needed Discharge planning: home (Whit Crenshaw, PA-C) PA Physician Supervision Note: I interviewed and examined the patient. Discussed with Whit Crenshaw PAC and agree with findings and plan as documented in the note. Any exceptions or clarifications are listed here: None This pt still is having mucus containing bowel movements and abdominal pain her chronic pain is now near its daily baseline 36.5 71 18 89/56--blood pressure was lower in am and pt did recieve additional fluids Car is regular, lungs clear, abd with increased bowel sounds and minor tenderness, no rebound no pain to heel tap Acute c diff colitis , continue oral antibiotics, continue chronic pain treatment, clinically doubt appendicitis Documented By: Case Russ (Case Russ M.D.)
[2017-12-18] MEDS ORDERED: CHOLESTYRAMINE LIGHT 4 GM PKT PO ONE (13:42)
[2017-12-18 15:05] VITALS: BP 100/65; PULSE 72; TEMP 36.4; O2SAT 98
[2017-12-18] MEDS: CLONAZEPAM 1 MG TAB PO SCH (20:36)
[2017-12-18] MEDS: CITALOPRAM 40 MG TAB PO SCH (20:38)
[2017-12-18] MEDS: CHOLESTYRAMINE LIGHT 4 GM PKT PO SCH (21:29)
[2017-12-18 23:24] VITALS: BP 95/60; PULSE 59; TEMP 36.7; O2SAT 99
[2017-12-19] MEDS: LEVOTHYROXINE 88 MCG TAB PO SCH (06:23)
[2017-12-19] MEDS: NSS + 20MEQ KCL 1000ML 1,000 ML IV SCH ×2 (06:23→14:05)
[2017-12-19 07:17] VITALS: BP 94/62; PULSE 70; TEMP 36.6; O2SAT 99
[2017-12-19 07:36] LABS: HEMATOCRIT 29.5 % (37-47); HEMOGLOBIN 10.3 g/dL (12.0-16.0); MEAN CELL VOLUME 83.6 fL (80-100); MEAN CORPUSCULAR HEMOGLOBIN 29.2 pg (25-34); MEAN CORPUSCULAR HGB CONC 34.9 g/dl (32-36); MEAN PLATELET VOLUME 9.5 fL (7.4-10.4); PLATELET COUNT 176 K/uL (130-400); RED CELL DISTRIBUTION WIDTH CV 13.7 % (11.5-14.5); RED CELL DISTRIBUTION WIDTH SD 41.9 fL (36.4-46.3); WHITE BLOOD COUNT 6.63 K/uL (4.8-10.8)
--- NOTE | 2017-12-19 07:53 | Clinical Documentation Query ---
ELINOR BREAUX : CLINICAL DOCUMENTATION QUERY Documentation includes "Sepsis 2/2 Pancolitis from C. Diff". This diagnosis was not made on admission. Due to concern for record audit with possibility of payment denial, clinical diagnoses in the medical record must have supporting documentation and clinical data. Patient presented with leukocytosis and an isolated HR >90, both of which were resolved after IVF boluses recieved in ED with subsequent maintenance fluids in the setting of 6-10 episodes of diarrhea for 5 days prior to admission. Lactic acid was normal, patient was normothermic and without tachypnea. Please clarify your clinical opinion regarding this clinical diagnosis. Thank you. In your clinical opinion is this patient being managed for: ( x ) Sepsis secondary to C. Diff pancolitis, POA, resolved ( ) Sepsis ruled out Please clarify and document your clinical opinion in the progress notes and discharge summary. Terms such as "probable", "suspected", "likely", "questionable", "possible", or "still to be ruled out" are acceptable. IF IN AGREEMENT, YOU MUST DOCUMENT ABOVE DIAGNOSTIC STATEMENT IN DAILY PROGRESS NOTES AND DISCHARGE SUMMARY. This document is not part of the patient's record. Thank You, Dane Tim, RN [phone]
[2017-12-19] MEDS: GABAPENTIN 600 MG TAB PO SCH ×3 (07:58→20:46)
[2017-12-19] MEDS: LACTOBACILLUS ACIDOPHILUS (FLORANEX) TAB PO SCH (07:58)
[2017-12-19] MEDS: RASPBERRY SYRUP 5 ML UDP PO SCH ×4 (07:58→20:44)
[2017-12-19] MEDS: VANCOMYCIN HCL 125 MG/2.5ML SOLN PO SCH ×4 (07:58→20:44)
[2017-12-19] MEDS: TOPIRAMATE 100 MG TAB PO SCH ×2 (07:58→20:45)
[2017-12-19] MEDS: HYDROXYCHLOROQUINE SULFATE 200 MG TAB PO SCH ×2 (07:58→20:45)
[2017-12-19] MEDS: ASPIRIN 81 MG ECTAB PO SCH (07:58)
[2017-12-19] MEDS: HEPARIN SOD 5000 UNIT/0.5 ML CARP SQ SCH ×2 (07:58→20:46)
[2017-12-19] MEDS: LIOTHYRONINE SODIUM 5 MCG TAB PO SCH (07:58)
[2017-12-19 08:03] LABS: CALCIUM 7.8 mg/dl (8.5-10.1); CREATININE 0.58 mg/dl (0.60-1.20); POTASSIUM 4.5 mmol/L (3.5-5.1)
[2017-12-19] MEDS: KETOROLAC TROMETHAMINE 15 MG/ML VIAL IV PRN ×3 (10:06→21:38)
[2017-12-19] MEDS: CHOLESTYRAMINE LIGHT 4 GM PKT PO SCH ×2 (10:06→21:34)
[2017-12-19 15:31] VITALS: BP 107/72; PULSE 61; TEMP 36.8; O2SAT 100
--- NOTE | 2017-12-19 15:36 | Hospitalist Progress Note ---
Hospitalist Progress Note Date of Service Dec 19, 2017. (Whit Crenshaw PA-C) Subjective Pt evaluation today including: conversation w/ patient, physical exam, lab review, review of inpatient medication list Patient seen and evaluated. No acute events overnight. Continues to have frequent BMs but feels they are improving. Tolerating full liquid diet and plans to advance to regular Feels very tired today and feels wiped out. Constitutional: No fever, No chills Respiratory: No cough, No shortness of breath Cardiovascular: No chest pain Abdomen: + pain (diffuse - some improvement), + diarrhea, No nausea, No vomiting Musculoskeletal: No calf pain Female : No dysuria Heme: No abnormal bleeding/bruising (Whit Crenshaw, FILOMENA) Medications Current Inpatient Medications Medications (Trade) Dose Ordered Sig/Karolina Route Start Time Stop Time Status Last Admin Dose Admin Ioversol (Optiray 320) 111 ml UD PRN IV 12/17/17 16:30 12/21/17 16:29 Vancomycin HCl (Vancomycin Oral Soln) 125 mg QID PO 12/18/17 09:00 01/01/18 08:59 12/19/17 14:05 125 MG Acetaminophen (Tylenol Tab) 650 mg Q4H PRN PO 12/17/17 18:15 01/16/18 18:14 Al Hydrox/Mg Hydrox/Simethicone (Maalox Max Susp) 15 ml Q4H PRN PO 12/17/17 18:15 01/16/18 18:14 Ondansetron HCl (Zofran Inj) 4 mg Q6H PRN IV 12/17/17 18:15 01/16/18 18:14 Heparin Sodium (Porcine) (Heparin Sq 5000 Unit/0.5ml) 5,000 unit Q12H SQ 12/17/17 21:00 01/16/18 20:59 Aspirin (Ecotrin Tab) 81 mg QAM PO 12/18/17 09:00 01/17/18 08:59 12/19/17 07:58 81 MG Citalopram Hydrobromide (celeXA TAB) 40 mg HS PO 12/17/17 21:00 01/16/18 20:59 12/18/17 20:38 40 MG Clonazepam (Klonopin Tab) 1 mg HS PO 12/17/17 21:00 5/2/18 20:59 12/18/17 20:36 1 MG Cyclobenzaprine HCl (Flexeril Tab) 5 mg TID PRN PO 12/17/17 18:15 01/16/18 18:14 Gabapentin (Neurontin Tab) 600 mg TID PO 12/17/17 21:00 01/16/18 20:59 12/19/17 14:05 600 MG Hydroxychloroquine Sulfate (Plaquenil Tab) 200 mg BID PO 12/17/17 21:00 01/16/18 20:59 12/19/17 07:58 200 MG Levothyroxine Sodium (Synthroid Tab) 88 mcg DAILYBB PO 12/18/17 06:30 01/17/18 06:59 12/19/17 06:23 88 MCG Liothyronine Sodium (Cytomel Tab) 5 mcg QAM PO 12/18/17 09:00 01/17/18 08:59 12/19/17 07:58 5 MCG Topiramate (Topamax Tab) 100 mg BID PO 12/17/17 21:00 01/16/18 20:59 12/19/17 07:58 100 MG Lactobacillus Acidophilus (Floranex Tab) 1 tab QAM PO 12/18/17 09:00 01/17/18 08:59 12/19/17 07:58 1 TAB Morphine Sulfate (MoRPHine SULFATE INJ) 2 mg Q4H PRN IV 12/17/17 18:15 12/31/17 18:14 Potassium Chloride/Sodium Chloride 1,000 ml @ 100 mls/hr Q10H IV 12/17/17 21:00 01/16/18 20:59 12/19/17 14:05 100 MLS/HR Miscellaneous (Iv Fluids Completed) 1 ea PRN PRN N/A 12/17/17 20:15 12/17/18 20:14 Raspberry (Raspberry Syrup 5ml Cup) 5 ml QID PO 12/18/17 09:00 01/01/18 08:59 12/19/17 14:05 5 ML Miscellaneous (Iv Fluids Completed) 1 ea PRN PRN N/A 12/17/17 23:00 12/17/18 22:59 Ketorolac Tromethamine (Toradol Inj) 15 mg Q6H PRN IV 12/18/17 08:45 12/23/17 08:44 12/19/17 10:06 15 MG Miscellaneous (Iv Fluids Completed) 1 ea PRN PRN N/A 12/18/17 10:15 12/18/18 10:14 Cholestyramine Resin (Questran Powder Light) 4 gm BID@10,22 PO 12/18/17 22:00 01/17/18 21:59 12/19/17 10:06 4 GM (Whit Crenshaw PA-C) Objective Vital Signs Date Time Temp Pulse Resp B/P (MAP) Pulse Ox O2 Delivery O2 Flow Rate FiO2 12/19/17 08:00 Room Air 12/19/17 07:17 36.6 70 17 94/62 (73) 99 Room Air 12/19/17 00:00 Room Air 12/18/17 23:24 36.7 59 19 95/60 (72) 99 Room Air 12/18/17 16:15 Room Air (Whit Crenshaw PA-C) Physical Exam General Appearance: WD/WN, no apparent distress Eyes: sclerae normal ENT: hearing grossly normal Neck: supple, no JVD, trachea midline Respiratory/Chest: lungs clear, normal breath sounds, no respiratory distress, no accessory muscle use Cardiovascular: regular rate, rhythm, no gallop, no murmur Abdomen: normal bowel sounds, soft, + tenderness Extremities: no pedal edema Neurologic/Psychiatric: alert Skin: normal color (Whit Crenshaw PA-C) Laboratory Results Last 24 Hours Test 12/19/17 07:23 White Blood Count 6.63 K/uL Red Blood Count 3.53 M/uL Hemoglobin 10.3 g/dL Hematocrit 29.5 % Mean Corpuscular Volume 83.6 fL Mean Corpuscular Hemoglobin 29.2 pg Mean Corpuscular Hemoglobin Concent 34.9 g/dl RDW Standard Deviation 41.9 fL RDW Coefficient of Variation 13.7 % Platelet Count 176 K/uL Mean Platelet Volume 9.5 fL Sodium Level 146 mmol/L Potassium Level 4.5 mmol/L Chloride Level 119 mmol/L Carbon Dioxide Level 22 mmol/L Anion Gap 5.0 mmol/L Blood Urea Nitrogen 3 mg/dl Creatinine 0.58 mg/dl Est Creatinine Clear Calc Drug Dose 74.0 ml/min Estimated GFR () 116.9 Estimated GFR (Non- 100.9 BUN/Creatinine Ratio 5.2 Random Glucose 79 mg/dl Calcium Level 7.8 mg/dl Magnesium Level 1.8 mg/dl (Whit Crenshaw, HEATHER-C) Assessment and Plan Sepsis 2/2 Pancolitis from C. Diff - Moderate/Severe POA: RESOLVED - Continues to have frequent BMs and abdominal pain/cramping but is improving - Vancomycin 125 mg QID - treatment started on 12/17 - Continue Questran BID - Advance to regular diet and monitor for tolerance Enlarged Appendix: - This is likely in the setting of colitis but will monitor Low Normal BPs: - Patient normally runs low and this is stable; Will stop fluids at this time but will reassess for resumption Acute on Chronic Pain 2/2 Chronic Lyme: STABLE - Was on Abx x 4 years and stopped approx. 2 months ago - Gabapentin 600 mg TID; Flexeril PRN - Toradol and Morphine PRN DVT Prophylaxis: Heparin Disposition: - Advance diet and monitor - pending further clinical improvement possible D/C next 1-2 days Continued [facility] stay due to: inadequate po fluid intake Discharge planning: home (Whit Crenshaw, FILOMENA) PA Physician Supervision Note: I interviewed and examined the patient. Discussed with Whit Crenshaw PAC and agree with findings and plan as documented in the note. Any exceptions or clarifications are listed here: None This pt still is having mucus containing bowel movements and abdominal pain her chronic pain is now near its daily baseline vitals are stable still with frequent stools Car is regular, lungs clear, abd with normal bowel sounds and no tenderness, no rebound no pain to heel tap Acute c diff colitis , continue oral vancomycin, added cholestyramine, continue chronic pain treatment Documented By: Case Russ (Case Russ M.D.)
[2017-12-19 16:19] VITALS: Ht 157.5 cm; Wt 44.9 kg
[2017-12-19] MEDS: CLONAZEPAM 1 MG TAB PO SCH (20:44)
[2017-12-19] MEDS: CITALOPRAM 40 MG TAB PO SCH (20:46)
[2017-12-19 23:39] VITALS: BP 93/59; PULSE 66; TEMP 36.9; O2SAT 98
[2017-12-20] MEDS: KETOROLAC TROMETHAMINE 15 MG/ML VIAL IV PRN ×3 (05:57→22:22)
[2017-12-20] MEDS: LEVOTHYROXINE 88 MCG TAB PO SCH (05:57)
[2017-12-20 07:17] LABS: HEMATOCRIT 29.5 % (37-47); HEMOGLOBIN 10.2 g/dL (12.0-16.0); MEAN CELL VOLUME 83.6 fL (80-100); MEAN CORPUSCULAR HEMOGLOBIN 28.9 pg (25-34); MEAN CORPUSCULAR HGB CONC 34.6 g/dl (32-36); MEAN PLATELET VOLUME 9.8 fL (7.4-10.4); PLATELET COUNT 207 K/uL (130-400); RED CELL DISTRIBUTION WIDTH CV 13.7 % (11.5-14.5); RED CELL DISTRIBUTION WIDTH SD 41.7 fL (36.4-46.3)
[2017-12-20 07:51] LABS: CALCIUM 7.9 mg/dl (8.5-10.1); CREATININE 0.76 mg/dl (0.60-1.20); POTASSIUM 4.2 mmol/L (3.5-5.1)
[2017-12-20 07:58] VITALS: BP 104/69; PULSE 67; TEMP 36.9; O2SAT 98
[2017-12-20] MEDS ORDERED: VANC1SUS PO (08:07)
--- NOTE | 2017-12-20 08:08 | Discharge Instructions ---
Discharge Instructions Date of Service Dec 20, 2017. Admission Reason for Admission: Abdominal Pain; Colitis,Clostridium Difficile Discharge Discharge Diagnosis / Problem: c diff colitis Discharge Goals Goal(s): Diagnostic testing, Therapeutic intervention Activity Recommendations Activity Limitations: as noted below Lifting Limitations: gradually increase as tolerated . Current Hospital Diet Patient's current hospital diet: Regular Diet Discharge Diet Recommended Diet: Regular Diet Pending Studies Studies pending at discharge: no Medical Emergencies . Who to Call and When: Medical Emergencies: If at any time you feel your situation is an emergency, please call 911 immediately. . Non-Emergent Contact Non-Emergency issues call your: Primary Care Provider Call Non-Emergent contact if: temperature is above 101, your pain is unusual for you . . "Provider Documentation" section prepared by Case Russ. .
[2017-12-20] MEDS: GABAPENTIN 600 MG TAB PO SCH ×3 (08:42→20:44)
[2017-12-20] MEDS: VANCOMYCIN HCL 125 MG/2.5ML SOLN PO SCH ×4 (08:43→20:45)
[2017-12-20] MEDS: LACTOBACILLUS ACIDOPHILUS (FLORANEX) TAB PO SCH (08:43)
[2017-12-20] MEDS: TOPIRAMATE 100 MG TAB PO SCH ×2 (08:43→20:45)
[2017-12-20] MEDS: RASPBERRY SYRUP 5 ML UDP PO SCH ×4 (08:43→20:45)
[2017-12-20] MEDS: LIOTHYRONINE SODIUM 5 MCG TAB PO SCH (08:44)
[2017-12-20] MEDS: ASPIRIN 81 MG ECTAB PO SCH (08:44)
[2017-12-20] MEDS: HEPARIN SOD 5000 UNIT/0.5 ML CARP SQ SCH ×2 (08:45→20:46)
[2017-12-20] MEDS: HYDROXYCHLOROQUINE SULFATE 200 MG TAB PO SCH ×2 (08:45→20:45)
[2017-12-20] MEDS: CHOLESTYRAMINE LIGHT 4 GM PKT PO SCH ×2 (10:12→22:20)
[2017-12-20 16:59] VITALS: BP 118/76; PULSE 54; TEMP 37; O2SAT 100
--- NOTE | 2017-12-20 19:31 | Progress Note ---
Subjective Date of Service: Dec 20, 2017. Subjective Patient is having bouts of fairly severe lower abdominal pain which is crampy requiring parenteral pain control. She is also having reduced but still frequent bowel movements making it difficult for her to return home Problem List Medical Problems: (1) Colitis, Clostridium difficile Status: Acute (2) Hypokalemia Status: Acute (3) Hypotension Status: Acute Review of Systems Constitutional: + weakness, + fatigue, No fever, No chills Respiratory: No cough, No shortness of breath, No dyspnea on exertion Cardiac: No chest pain, No edema Abdomen: + pain, + diarrhea, No nausea, No vomiting Female : No dysuria, No urinary frequency Objective Vital Signs Date Time Temp Pulse Resp B/P (MAP) Pulse Ox O2 Delivery O2 Flow Rate FiO2 12/20/17 16:59 37.0 54 16 118/76 (90) 100 Room Air 12/20/17 16:00 Room Air 12/20/17 08:00 Room Air 12/20/17 07:58 36.9 67 16 104/69 (81) 98 Room Air 12/20/17 00:00 Room Air 12/19/17 23:39 36.9 66 20 93/59 (70) 98 Room Air Physical Exam General Appearance: WD/WN, + mild distress Eyes: normal inspection, sclerae normal Respiratory/Chest: chest non-tender, lungs clear, normal breath sounds Cardiovascular: regular rate, rhythm, no murmur Abdomen: + guarding, + tenderness Extremities: no pedal edema, no calf tenderness Neurologic/Psychiatric: alert, oriented x 3 Laboratory Results Last 24 Hours Test 12/20/17 06:58 White Blood Count 8.50 K/uL Red Blood Count 3.53 M/uL Hemoglobin 10.2 g/dL Hematocrit 29.5 % Mean Corpuscular Volume 83.6 fL Mean Corpuscular Hemoglobin 28.9 pg Mean Corpuscular Hemoglobin Concent 34.6 g/dl RDW Standard Deviation 41.7 fL RDW Coefficient of Variation 13.7 % Platelet Count 207 K/uL Mean Platelet Volume 9.8 fL Sodium Level 146 mmol/L Potassium Level 4.2 mmol/L Chloride Level 118 mmol/L Carbon Dioxide Level 23 mmol/L Anion Gap 5.0 mmol/L Blood Urea Nitrogen 3 mg/dl Creatinine 0.76 mg/dl Est Creatinine Clear Calc Drug Dose 56.5 ml/min Estimated GFR () 99.5 Estimated GFR (Non- 85.9 BUN/Creatinine Ratio 4.1 Random Glucose 88 mg/dl Calcium Level 7.9 mg/dl Magnesium Level 1.7 mg/dl Assessment and Plan Sepsis 2/2 Pancolitis from C. Diff - Moderate/Severe POA: RESOLVED - Continues to have frequent BMs and abdominal pain/cramping, still requiring pain control on top of usual chronic pain meds - Vancomycin 125 mg QID - treatment started on 12/17, last dose 12/31 - Continue Questran BID Enlarged Appendix:This is likely in the setting of colitis do not feel she has clinical appendicitis Low Normal BPs:- Patient normally runs low and this is stable; Acute on Chronic Pain 2/2 Chronic Lyme: STABLE - Was on Abx x 4 years and stopped approx. 2 months ago - Gabapentin 600 mg TID; Flexeril PRN - Toradol and Morphine PRN DVT Prophylaxis: Heparin Continued [facility] stay due to: inadequate po fluid intake Discharge planning: home
[2017-12-20] MEDS: CLONAZEPAM 1 MG TAB PO SCH (20:43)
[2017-12-20] MEDS: CITALOPRAM 40 MG TAB PO SCH (20:43)
[2017-12-21] VITALS: BP 109/70; PULSE 63; TEMP 37; O2SAT 97
[2017-12-21] MEDS: LEVOTHYROXINE 88 MCG TAB PO SCH (06:04)
[2017-12-21 08:04] VITALS: BP 103/67; PULSE 66; TEMP 36.8; O2SAT 99
[2017-12-21 08:30] LABS: HEMOGLOBIN 11.8 g/dL (12.0-16.0); MEAN CORPUSCULAR HEMOGLOBIN 29.1 pg (25-34); MEAN CORPUSCULAR HGB CONC 34.7 g/dl (32-36); PLATELET COUNT 267 K/uL (130-400); RED CELL DISTRIBUTION WIDTH CV 13.7 % (11.5-14.5); RED CELL DISTRIBUTION WIDTH SD 41.8 fL (36.4-46.3); WHITE BLOOD COUNT 9.68 K/uL (4.8-10.8)
[2017-12-21] MEDS: HEPARIN SOD 5000 UNIT/0.5 ML CARP SQ SCH (09:00)
[2017-12-21 09:01] LABS: CALCIUM 8.2 mg/dl (8.5-10.1); CREATININE 0.75 mg/dl (0.60-1.20); POTASSIUM 3.9 mmol/L (3.5-5.1)
[2017-12-21] MEDS: VANCOMYCIN HCL 125 MG/2.5ML SOLN PO SCH ×2 (09:24→12:16)
[2017-12-21] MEDS: LIOTHYRONINE SODIUM 5 MCG TAB PO SCH (09:25)
[2017-12-21] MEDS: HYDROXYCHLOROQUINE SULFATE 200 MG TAB PO SCH (09:25)
[2017-12-21] MEDS: GABAPENTIN 600 MG TAB PO SCH ×2 (09:25→14:00)
[2017-12-21] MEDS: RASPBERRY SYRUP 5 ML UDP PO SCH ×2 (09:25→12:17)
[2017-12-21] MEDS: ASPIRIN 81 MG ECTAB PO SCH (09:25)
[2017-12-21] MEDS: LACTOBACILLUS ACIDOPHILUS (FLORANEX) TAB PO SCH (09:25)
[2017-12-21] MEDS: TOPIRAMATE 100 MG TAB PO SCH (09:26)
[2017-12-21 10:44] VITALS: BP 103/67; PULSE 66; TEMP 36.8; O2SAT 99
[2017-12-21] MEDS: CHOLESTYRAMINE LIGHT 4 GM PKT PO SCH (10:51)
[2017-12-21] MEDS ORDERED: CHOL4POW11 PO (19:05)
--- NOTE | 2017-12-21 19:07 | Discharge Summary ---
Discharge Summary Date of Service Dec 21, 2017. Discharge Summary Admission Date: Dec 18, 2017 at 08:46 Discharge Date: Dec 20, 2017 Discharge Disposition: Home Principal Diagnosis: c diff colitis Immunizations: Have You Had Influenza Vaccine: Yes Influenza Vaccine Date: Jul 18, 2006 History of Tetanus Vaccine?: Yes Tetanus Immunization Date: Jul 23, 2001 History of Pneumococcal: Yes Pneumococcal Date: Jul 23, 2004 History of Hepatitis B Vaccine: Yes Medication Reconciliation New Medications: Cholestyramine (Questran) 4 Gm Pow 4 GM PO BID, #80 GM Vancomycin HCl (Vancomycin HCl + Syrspend) 50 Mg/Ml Lita 125 MG PO QID, #48 DOSE may substitute capsules or tablets same directions and amount Continued Medications: Albuterol Hfa (Ventolin Hfa) 200 Puffs/24947 Mcg Aers 2-4 PUFFS INH Q6H PRN for Shortness of Breath, #1 INHALER Aspirin (Aspir-81) 81 Mg Tab 1 TAB PO DAILY for 90 Days, #90 TAB 3 Refills Biotin (Biotin) 1 Mg Cap 1 CAP PO 3XWK Citalopram (Citalopram Hydrobromide) 40 Mg Tab 1 TAB PO HS for 90 Days, TAB 3 Refills Citalopram Hydrobromide (Citalopram Hydrobromide) 20 Mg Tab 1 TAB PO HS for 90 Days, TAB 3 Refills Clonazepam (Klonopin) 1 Mg Tab 1 MG PO HS, TAB Cyanocobalamin (B-12) 1,000 Mcg Sub 1 DOSE SC Q3MO Cyclobenzaprine Hcl (Flexeril) 5 Mg Tab 1 TAB PO TID PRN for spsam, TAB Gabapentin (Neurontin) 300 Mg Cap 600 MG PO TID, CAP Hydrocodone/Acetaminophen 10MG/325MG ([place] 10MG/325MG) Tab 1 TAB PO BID PRN for Pain, TAB PRN PAIN Levothyroxine Sodium (Levothyroxine Sodium) 88 Mcg Tab 1 TAB PO QAM for 90 Days, #90 TAB 3 Refills Liothyronine Sodium (Liothyronine Sodium) 5 Mcg Tab 1 TAB PO QAM Probiotic Product (Probiotic) 1 Cap Cap 1 CAP PO QAM Topiramate (Topamax) 100 Mg Tab 100 MG PO BID, TAB Discharge Exam Review of Systems: Constitutional: No fever, No chills, No sweats Respiratory: No cough, No sputum, No shortness of breath Cardiovascular: No chest pain, No orthopnea Abdomen: + diarrhea, No pain, No nausea Musculoskeletal: No joint pain, No muscle pain Physical Exam: General Appearance: WD/WN, + mild distress Eyes: normal inspection, sclerae normal Respiratory/Chest: chest non-tender, lungs clear, normal breath sounds Cardiovascular: regular rate, rhythm, no murmur Abdomen / GI: normal bowel sounds, non tender, soft Hospital Course Sepsis 2/2 Pancolitis from C. Diff - Moderate/Severe POA: RESOLVED - Continues to have frequent BMs and abdominal pain/cramping, still requiring pain control on top of usual chronic pain meds - Vancomycin 125 mg QID - treatment started on 12/17, last dose 12/31 Enlarged Appendix:This is likely in the setting of colitis do not feel she has clinical appendicitis Low Normal BPs:- Patient normally runs low and this is stable; Acute on Chronic Pain 2/2 Chronic Lyme: STABLE - Was on Abx x 4 years and stopped approx. 2 months ago - Gabapentin 600 mg TID; Flexeril PRN - Toradol and Morphine PRN Total Time Spent: Greater than 30 minutes This includes examination of the patient, discharge planning, medication reconciliation, and communication with other providers. Discharge Instructions Please refer to the electronic Patient Visit Report (Discharge Instructions) for additional information.
== END 2017-12-21 13:15 | disposition home or self-care (01) | DRG 872 ==
LOC: C.EDB 15:02 → INTOOBSV 18:12 → UNDOADMOB 18:12 → C.MS2W 18:12 → OBSVTOIN 18:12 → ENRESERV 18:23 → EDBEDREQ 18:25 → C.MS2W 12-18 08:46 → OBSVTOIN 12-18 08:46
PROVIDERS: ADMIT Hospitalist; ATTEND Internal Medicine
DX: A41.9 Sepsis, unspecified organism (principal); A04.72 Enterocolitis due to Clostridium difficile, not specified as recurrent; K51.00 Ulcerative (chronic) pancolitis without complications; A69.20 Lyme disease, unspecified; G89.29 Other chronic pain; R03.1 Nonspecific low blood-pressure reading; F41.1 Generalized anxiety disorder; Z85.850 Personal history of malignant neoplasm of thyroid; Z79.82 Long term (current) use of aspirin; Z79.899 Other long term (current) drug therapy; Z88.0 Allergy status to penicillin

== ENCOUNTER → 2018-01-15 | Outpatient (CLI) | payer OTHER ==
[~2018-01-15] MED LIST changes: -ASPCH81X PO; +ASPI-232 PO; -ATOV250T PO; -AZIT250T PO; -CEFU250T15 PO; +CHOL4POW11 PO; -HYDR200T5 PO; -TRAM-10 PO; +VANC1SUS PO
--- NOTE | 2018-01-15 14:15 | DIAGNOSTIC IMAGING REPORT ---
VIDEO SWALLOW HISTORY: Dysphagia. Vocal cord paralysis. 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 The patient is fed nectar-thick and thin liquid barium, a barium coated wafer, and barium pudding. FLUOROSCOPY TIME: 2.2 minutes. COMPARISON STUDY: 01/06/2018 FINDINGS: There is normal hyoid excursion and epiglottic deflection. No significant penetration or aspiration identified. Swallowing function is within normal limits. No evidence for aspiration or significant vallecular pooling. IMPRESSION: 1. No aspiration identified. 2. Please see the speech pathologist report for detailed findings and recommendations. The above report was generated using voice recognition software. It may contain grammatical, syntax or spelling errors. Electronically signed by: Faisal Tafoya M.D. 01/15/2018 2:13 PM Dictated Date/Time: 01/15/2018 2:11 PM
--- NOTE | 2018-01-15 17:12 | SWALLOWING EVALUATION ---
REFERRING SPEECH PATHOLOGIST: n/a HISTORY: This 57 year-old female was referred for a VFSS at [facility] in order to address c/o progressively worsening dysphagia, with solids and liquids, over several years. The patient has a PMH significant for Lyme disease, thyroid CA with surgery x 2 and radioactive iodine treatment and chronic pain. She was recently admitted to the hospital with CDIFF and had c/o dysphagia at that time. It was attributed to her nausea and malaise from the CDIFF and there was no concern for aspiration. Since then the dysphagia has persisted and worsened. A recent appointment with Dr. Vazquez, ENT, revealed (R) vocal fold paresis. Dr. Vazquez referred the patient for this study d/t c/o dysphagia. Currently the patient's diet level is regular as tolerated. PROCEDURE: The patient was seen in the Radiology Department of [facility] for the VFSS. Cursory examination of the oral cavity revealed adequate dentition. Movement of the articulators was WNL. The patient was seated on a stool and was viewed in both the Anterior-Posterior (A-P) and Lateral planes. Volitional phonation exercises completed in the A-P plane revealed bilateral vocal fold movement, L>R, and vocal intensity within functional limits, but with a hoarse/raspy quality. In the lateral plane, the patient was given the following boluses: 1 tsp. thin liquid barium x 2, single swallow thin liquid barium self-presented from a cup, sequential swallows of thin liquid barium self-presented from a straw, 1 tsp. nectar-thick liquid barium, single swallow nectar-thick liquid barium self-presented from a cup, 1 tsp. barium pudding, and 1 club cracker with barium pudding. The patient was then repositioned into the A-P plane and given 1 tsp. barium pudding. RESULTS: Oral Stage: Labial seal complete. Able to hold thin liquid bolus between tongue and palate. Mastication efficient. Delayed onset of lingual movement for posterior bolus transfer. Oral residue on teeth and tongue after the swallow. Initiation of the pharyngeal swallow occurred when the bolus head was at the posterior angle of the ramus. Mild oral-stage dysphagia related to delayed onset of posterior bolus transfer. Pharyngeal Stage: Velar elevation, laryngeal elevation, anterior hyoid excursion, laryngeal vestibular closure complete. (+) pharyngeal stripping wave. Pharyngeal contraction complete. Adequate distention and duration of PES opening. No contrast between tongue base and pharyngeal wall. No pharyngeal bolus retention after the swallow. No penetration or aspiration during this study. Pharyngeal swallow WNL. The patient uses effortful swallows habitually as though she expects every swallow to be difficult and she initiates effortful second swallows to clear residuals despite pharynx being clear. Esophageal Stage: Mild hesitancy of pudding bolus to fully clear the esophagus. SUMMARY/RECOMMENDATIONS: This patient presents with mild oral-stage dysphagia and may have mild s/s esophageal dysfunction. The following is recommended: 1. Diet as tolerated 2. If esophageal dysfunction is suspected to be contributing to the patient's symptoms, then consider completion of a Barium Swallow Study. 3. If the patient continues to have dysphagia symptoms and texture intolerances then consider outpatient RECRUITMENT DIRECTOR intervention to attempt to help the patient with her complaints. The patient may also benefit from f/u with RECRUITMENT DIRECTOR services for vocal fold dysfunction/voice therapy. A summary of the results and recommendations was discussed with the patient immediately following the study. She verbalized understanding and is expecting to follow-up with the referring physician. Thank you for referral of this patient. Please contact me at if any additional information is needed.
== END | disposition home or self-care (01) ==
LOC: C.RAD 12:54
DX: J38.01 Paralysis of vocal cords and larynx, unilateral (principal)

== ENCOUNTER → 2018-02-07 | Outpatient (CLI) | payer OTHER ==
--- NOTE | 2018-02-08 15:19 | MAMMOGRAPHY REPORT ---
BILATERAL DIGITAL SCREENING MAMMOGRAM TOMOSYNTHESIS WITH CAD: 02/07/2018 CLINICAL HISTORY: Routine screening. Patient has no complaints. TECHNIQUE: Breast tomosynthesis in addition to standard 2D mammography was performed. Current study was also evaluated with a Computer Aided Detection (CAD) system. COMPARISON: Comparison is made to exams dated: 06/29/2017 ultrasound, 06/29/2017 mammogram, 7 mammogram, 12/31/2015 mammogram, 12/29/2014 mammogram, and 11/06/2013 mammogram - [facility]. BREAST COMPOSITION: The tissue of both breasts is heterogeneously dense, which may obscure small mas ses. FINDINGS: No suspicious masses, calcifications, or areas of architectural distortion are noted in ei ther breast. There has been no significant interval change compared to prior exams. IMPRESSION: ACR BI-RADS CATEGORY 1: NEGATIVE There is no mammographic evidence of malignancy. A 1 year screening mammogram is recommended. The pa tient will receive written notification of the results. Approximately 10% of breast cancers are not detected with mammography. A negative mammographic report should not delay biopsy if a clinically suggestive mass is present. Tali Kline M.D. ah/:02/07/2018 15:49:27 Embedded Software Manager: Jyoti RICHARDSON(R)(M), [facility] letter sent: Normal 1/2 BI-RADS Code: ACR BI-RADS Category 1: Negative
== END | disposition home or self-care (01) ==
LOC: C.MAMM 14:56
PROVIDERS: ATTEND Internal Medicine
DX: Z12.31 Encounter for screening mammogram for malignant neoplasm of breast (principal)

== ENCOUNTER → 2018-05-06 | Outpatient (CLI) | payer OTHER ==
[~2018-05-06] MED LIST changes: +CLON1TAB10 PO; -CLON1TAB3 PO
[2018-05-06 18:28] LABS: BASO % 1.1 %; BASO ABS # 0.06 K/uL (0-0.2); EOS % 1.7 %; EOS ABS # 0.09 K/uL (0-0.5); HEMATOCRIT 38.7 % (37-47); IG# 0.06 K/uL (0.00-0.02); LYMPH % 28.3 %; MEAN CELL VOLUME 86.2 fL (80-100); MEAN CORPUSCULAR HGB CONC 33.6 g/dl (32-36); MEAN PLATELET VOLUME 10.2 fL (7.4-10.4); MONO % 10.8 %; MONO ABS # 0.57 K/uL (0.11-0.59); NEUT ABS # 3.02 K/uL (1.4-6.5); PLATELET COUNT 201 K/uL (130-400)
[2018-05-06 19:44] LABS: T3 FREE 2.28 pg/ml (2.30-4.20)
[2018-05-06 19:50] LABS: ALBUMIN 3.7 gm/dl (3.4-5.0); ALKALINE PHOSPHATASE 67 U/L (45-117); ALT/SGPT 31 U/L (12-78); AST/SGOT 23 U/L (15-37); BLOOD UREA NITROGEN 8 mg/dl (7-18); CALCIUM 8.2 mg/dl (8.5-10.1); CARBON DIOXIDE 25 mmol/L (21-32); CREATININE 0.87 mg/dl (0.60-1.20); GLUCOSE 75 mg/dl (70-99); POTASSIUM 3.9 mmol/L (3.5-5.1); SODIUM 142 mmol/L (136-145); TOTAL PROTEIN 6.6 gm/dl (6.4-8.2)
== END | disposition home or self-care (01) ==
LOC: C.LABMFLN 10:54
PROVIDERS: ATTEND Family Medicine
DX: C73 Malignant neoplasm of thyroid gland (principal); M25.50 Pain in unspecified joint; E55.9 Vitamin D deficiency, unspecified